=== PATIENT | female | born 1995 | race African-American/Black ===

== ENCOUNTER → 2017-05-08 11:07 | Outpatient (CLI) | payer MEDICAID ==
[~2017-05-08 11:07] MED LIST: HYDROCODON-ACE1 EAC7 PO; IBUPROFEN600 MG PO; PRENATAL COMPLE1 TAB PO
[2017-06-10 07:33] VITALS: BMI 42.7
== END | disposition home or self-care (01) ==
LOC: D.LDO 11:07
DX: O16.9 Unspecified maternal hypertension, unspecified trimester (principal); Z3A.00 Weeks of gestation of pregnancy not specified

== ENCOUNTER → 2017-05-13 13:41 | Outpatient (CLI) | payer MEDICAID ==
[2017-05-13 15:48] LABS: APPEARANCE HAZY (CLEAR); BILIRUBIN NEGATIVE (NEGATIVE); COLOR YELLOW (YELLOW); GLUCOSE NEGATIVE (NEGATIVE); KETONE NEGATIVE (NEGATIVE); NITRITE NEGATIVE (NEGATIVE); PH 7.5 (5.0-6.0); PROTEIN NEGATIVE (NEGATIVE); SPECIFIC GRAVITY 1.005 (1.005-1.020); UROBILINOGEN NORMAL (NORMAL)
[2017-05-13 15:54] LABS: BACTERIA MODERATE /hpf (NONE SEEN); WHITE CELLS - URINE 0-5 /hpf (0-5)
[2017-06-10 07:33] VITALS: BMI 42.7
== END | disposition home or self-care (01) ==
LOC: D.LDO 13:41
PROVIDERS: Obstetrics & Gynecology
DX: O26.893 Other specified pregnancy related conditions, third trimester (principal); Z3A.35 35 weeks gestation of pregnancy; R10.30 Lower abdominal pain, unspecified

== ENCOUNTER → 2017-05-16 13:15 | Outpatient (CLI) | payer MEDICAID ==
[2017-06-10 07:33] VITALS: BMI 42.7
== END | disposition home or self-care (01) ==
LOC: D.LDO 13:15
DX: O16.3 Unspecified maternal hypertension, third trimester (principal); Z3A.35 35 weeks gestation of pregnancy

== ENCOUNTER → 2017-05-23 14:52 | Outpatient (CLI) | payer MEDICAID ==
[2017-05-23 15:40] LABS: BASOPHILS 0.1 % (0-2); EOSINOPHILS 0.2 % (0-7); HEMATOCRIT 34.1 % (36.0-48.0); HEMOGLOBIN 10.9 g/dL (12-16); IMMATURE GRANULOCYTES 0.5 % (0-5); LYMPHOCYTES 14.3 % (15-50); MCH 26.1 pg (26.0-34.0); MCV 81.6 fL (80.0-100.0); MEAN PLATELET VOLUME 9.3 fL (7.4-10.4); MONOCYTES 6.5 % (2-11); NEUTROPHILS 78.4 % (40-80); PLATELET COUNT 226 10x3/uL (130-400); RBC 4.18 10x6/uL (4.00-5.40); RDW 14.4 % (11.5-14.5); WBC 12.1 10x3/uL (4.8-10.8)
[2017-05-23 15:58] LABS: ALBUMIN 2.5 g/dL (3.4-5.0); ALKALINE PHOSPHATASE 125 U/L (46-116); ALT (SGPT) 14 U/L (10-68); BILIRUBIN - TOTAL 0.29 mg/dL (0.2-1.3); CALC OSMOLALITY 275 mosm/kg (275-300); CHLORIDE - SERUM 107 mmol/L (98-107); CREATININE - SERUM 0.6 mg/dL (0.6-1.3); GLUCOSE 81 mg/dL (74-106); POTASSIUM - SERUM 3.7 mmol/L (3.5-5.1); PROTEIN - SERUM 6.4 g/dL (6.4-8.2); SODIUM 140 mmol/L (136-145); UREA NITROGEN 6 mg/dL (7-18); eGFR NON AFRICAN AMERICAN > 90 mL/min (90-120)
[2017-05-23 16:00] LABS: BILIRUBIN - DIRECT 0.11 mg/dL (0.00-0.30); BILIRUBIN - INDIRECT 0.18 mg/dL (0.00-1.00); URIC ACID 3.4 mg/dL (2.6-7.2)
[2017-05-23 16:15] LABS: APPEARANCE CLEAR (CLEAR); BILIRUBIN NEGATIVE (NEGATIVE); COLOR YELLOW (YELLOW); GLUCOSE NEGATIVE (NEGATIVE); KETONE NEGATIVE (NEGATIVE); NITRITE NEGATIVE (NEGATIVE); PROTEIN NEGATIVE (NEGATIVE); SPECIFIC GRAVITY 1.015 (1.005-1.020); UROBILINOGEN NORMAL (NORMAL)
[2017-05-25 10:38] LABS: PROTEIN - URINE 26.1 mg/dL (0.0-11.9)
[2017-06-10 07:33] VITALS: BMI 42.7
== END | disposition home or self-care (01) ==
LOC: D.LDO 14:52
PROVIDERS: Obstetrics & Gynecology
DX: O16.3 Unspecified maternal hypertension, third trimester (principal); Z3A.36 36 weeks gestation of pregnancy

== ENCOUNTER → 2017-05-25 10:00 | Outpatient (CLI) | payer MEDICAID ==
[2017-05-25 11:54] LABS: BASOPHILS 0.1 % (0-2); EOSINOPHILS 0.4 % (0-7); HEMOGLOBIN 10.6 g/dL (12-16); IMMATURE GRANULOCYTES 0.4 % (0-5); LYMPHOCYTES 16.8 % (15-50); MCH 25.9 pg (26.0-34.0); MCHC 32.1 g/dL (31.0-37.0); MCV 80.7 fL (80.0-100.0); MEAN PLATELET VOLUME 9.4 fL (7.4-10.4); MONOCYTES 6.1 % (2-11); NEUTROPHILS 76.2 % (40-80); PLATELET COUNT 227 10x3/uL (130-400); RBC 4.09 10x6/uL (4.00-5.40); RDW 14.6 % (11.5-14.5); WBC 10.9 10x3/uL (4.8-10.8)
[2017-05-25 11:56] LABS: ALBUMIN 2.3 g/dL (3.4-5.0); ALKALINE PHOSPHATASE 117 U/L (46-116); ALT (SGPT) 14 U/L (10-68); BILIRUBIN - DIRECT 0.12 mg/dL (0.00-0.30); BILIRUBIN - INDIRECT 0.14 mg/dL (0.00-1.00); BILIRUBIN - TOTAL 0.26 mg/dL (0.2-1.3); CALC OSMOLALITY 271 mosm/kg (275-300); CALCIUM 8.3 mg/dL (8.5-10.1); CHLORIDE - SERUM 106 mmol/L (98-107); CREATININE - SERUM 0.6 mg/dL (0.6-1.3); GLUCOSE 78 mg/dL (74-106); POTASSIUM - SERUM 3.7 mmol/L (3.5-5.1); PROTEIN - SERUM 6.6 g/dL (6.4-8.2); SODIUM 138 mmol/L (136-145); UREA NITROGEN 5 mg/dL (7-18); URIC ACID 3.2 mg/dL (2.6-7.2); eGFR NON AFRICAN AMERICAN > 90 mL/min (90-120)
[2017-06-10 07:33] VITALS: BMI 42.7
== END | disposition home or self-care (01) ==
LOC: D.LDO 10:00
PROVIDERS: Obstetrics & Gynecology
DX: O13.3 Gestational [pregnancy-induced] hypertension without significant proteinuria, third trimester (principal); Z3A.36 36 weeks gestation of pregnancy

== ENCOUNTER → 2017-05-30 16:27 | Outpatient (CLI) | payer MEDICAID ==
[2017-06-10 07:33] VITALS: BMI 42.7
== END | disposition home or self-care (01) ==
LOC: D.LDO 16:27
DX: O16.3 Unspecified maternal hypertension, third trimester (principal); Z3A.37 37 weeks gestation of pregnancy

== ENCOUNTER → 2017-06-02 10:25 | Outpatient (CLI) | payer MEDICAID ==
[2017-06-10 07:33] VITALS: BMI 42.7
== END | disposition home or self-care (01) ==
LOC: D.LDO 10:25
DX: O16.3 Unspecified maternal hypertension, third trimester (principal); Z3A.37 37 weeks gestation of pregnancy

== ENCOUNTER → 2017-06-06 16:20 | Outpatient (CLI) | payer MEDICAID ==
[2017-06-06 16:51] LABS: BASOPHILS 0.1 % (0-2); EOSINOPHILS 0.4 % (0-7); HEMATOCRIT 34.9 % (36.0-48.0); HEMOGLOBIN 11.2 g/dL (12-16); IMMATURE GRANULOCYTES 0.5 % (0-5); LYMPHOCYTES 17.6 % (15-50); MCH 25.9 pg (26.0-34.0); MCHC 32.1 g/dL (31.0-37.0); MCV 80.8 fL (80.0-100.0); MEAN PLATELET VOLUME 9.1 fL (7.4-10.4); MONOCYTES 8.1 % (2-11); NEUTROPHILS 73.3 % (40-80); PLATELET COUNT 234 10x3/uL (130-400); RBC 4.32 10x6/uL (4.00-5.40); RDW 14.7 % (11.5-14.5); WBC 11.2 10x3/uL (4.8-10.8)
[2017-06-06 17:19] LABS: ALBUMIN 2.6 g/dL (3.4-5.0); ALKALINE PHOSPHATASE 137 U/L (46-116); ALT (SGPT) 16 U/L (10-68); BILIRUBIN - DIRECT 0.17 mg/dL (0.00-0.30); BILIRUBIN - INDIRECT 0.19 mg/dL (0.00-1.00); BILIRUBIN - TOTAL 0.36 mg/dL (0.2-1.3); CALC OSMOLALITY 275 mosm/kg (275-300); CALCIUM 8.5 mg/dL (8.5-10.1); CARBON DIOXIDE 19.7 mmol/L (21.0-32.0); CHLORIDE - SERUM 106 mmol/L (98-107); CREATININE - SERUM 0.6 mg/dL (0.6-1.3); GLUCOSE 74 mg/dL (74-106); POTASSIUM - SERUM 3.5 mmol/L (3.5-5.1); PROTEIN - SERUM 6.6 g/dL (6.4-8.2); SODIUM 140 mmol/L (136-145); UREA NITROGEN 6 mg/dL (7-18); URIC ACID 3.2 mg/dL (2.6-7.2); eGFR NON AFRICAN AMERICAN > 90 mL/min (90-120)
[2017-06-10 07:33] VITALS: BMI 42.7
== END | disposition home or self-care (01) ==
LOC: D.LDO 16:20
PROVIDERS: Obstetrics & Gynecology
DX: O16.3 Unspecified maternal hypertension, third trimester (principal); Z3A.38 38 weeks gestation of pregnancy

== ENCOUNTER 2017-06-10 06:51 | Inpatient (IN) | payer MEDICAID ==
[~2017-06-10] VITALS: Ht 167.6 cm; Wt 119.7 kg
[2017-06-10] MEDS ORDERED: PRENATAL COMPLE1 TAB PO (07:04)
[2017-06-10 07:33] VITALS: BP 129/66; Ht 167.6 cm; Wt 119.7 kg
[2017-06-10 08:43] LABS: HEMATOCRIT 33.6 % (36.0-48.0); HEMOGLOBIN 10.8 g/dL (12-16); MCH 25.8 pg (26.0-34.0); MCHC 32.1 g/dL (31.0-37.0); MCV 80.2 fL (80.0-100.0); MEAN PLATELET VOLUME 9.5 fL (7.4-10.4); RBC 4.19 10x6/uL (4.00-5.40); RDW 15.1 % (11.5-14.5); WBC 12.4 10x3/uL (4.8-10.8)
[2017-06-10 08:52] LABS: APPEARANCE HAZY (CLEAR); BILIRUBIN NEGATIVE (NEGATIVE); COLOR YELLOW (YELLOW); GLUCOSE NEGATIVE (NEGATIVE); KETONE NEGATIVE (NEGATIVE); NITRITE NEGATIVE (NEGATIVE); PROTEIN NEGATIVE (NEGATIVE); SPECIFIC GRAVITY 1.015 (1.005-1.020); UROBILINOGEN NORMAL (NORMAL)
[2017-06-10 08:55] LABS: BACTERIA FEW /hpf (NONE SEEN); EPITHELIAL CELLS 0-5 /hpf (0-5); RED CELLS - URINE 0-5 /hpf (0-5); WHITE CELLS - URINE 0-5 /hpf (0-5)
[2017-06-11 19:43] VITALS: BP 148/73
[2017-06-11 23:00] VITALS: BP 152/79
[2017-06-12 00:20] VITALS: BP 132/70
[2017-06-12 06:45] LABS: BASOPHILS 0.1 % (0-2); EOSINOPHILS 0.4 % (0-7); HEMATOCRIT 27.5 % (36.0-48.0); HEMOGLOBIN 8.8 g/dL (12-16); IMMATURE GRANULOCYTES 0.4 % (0-5); LYMPHOCYTES 17.8 % (15-50); MCH 25.6 pg (26.0-34.0); MCV 79.9 fL (80.0-100.0); MEAN PLATELET VOLUME 9.5 fL (7.4-10.4); NEUTROPHILS 72.3 % (40-80); PLATELET COUNT 225 10x3/uL (130-400); RBC 3.44 10x6/uL (4.00-5.40); WBC 13.7 10x3/uL (4.8-10.8)
[2017-06-12 07:28] LABS: RAPID PLASMA REAGIN Non Reactive (Non Reactive)
[2017-06-12 08:30] VITALS: BP 134/84
[2017-06-12 19:45] VITALS: BP 150/84
[2017-06-13 00:30] VITALS: BP 149/77
[2017-06-13] MEDS ORDERED: IBUPROFEN600 MG PO (09:08)
[2017-06-13] MEDS ORDERED: HYDROCODON-ACE1 EAC7 PO (09:09)
== END 2017-06-13 15:00 | disposition home or self-care (01) | DRG 775 ==
LOC: D.LD 06:51 → D.SDCHOLD 06-12 15:20 → D.LD 06-12 15:20
PROVIDERS: Obstetrics & Gynecology
PROC: 10E0XZZ Delivery of Products of Conception, External Approach (ICD-10-PCS; principal; 2017-06-11)
PROC: 10907ZC Drainage of Amniotic Fluid, Therapeutic from Products of Conception, Via Natural or Artificial Opening (ICD-10-PCS; 2017-06-11)
PROC: 3E033VJ Introduction of Other Hormone into Peripheral Vein, Percutaneous Approach (ICD-10-PCS; 2017-06-11)
DX: O99.214 Obesity complicating childbirth (principal); Q87.2 Congenital malformation syndromes predominantly involving limbs; O26.833 Pregnancy related renal disease, third trimester; N04.9 Nephrotic syndrome with unspecified morphologic changes; O71.4 Obstetric high vaginal laceration alone; Z3A.39 39 weeks gestation of pregnancy; Z37.0 Single live birth

== ENCOUNTER 2017-06-14 17:45 | Emergency (ER) | payer MEDICAID ==
[2017-06-10 07:33] VITALS: BMI 42.7
[2017-06-14 18:36] LABS: BASOPHILS 0.1 % (0-2); EOSINOPHILS 1.5 % (0-7); HEMATOCRIT 29.3 % (36.0-48.0); HEMOGLOBIN 9.3 g/dL (12-16); IMMATURE GRANULOCYTES 0.5 % (0-5); LYMPHOCYTES 20.7 % (15-50); MCH 25.8 pg (26.0-34.0); MCHC 31.7 g/dL (31.0-37.0); MCV 81.2 fL (80.0-100.0); MEAN PLATELET VOLUME 9.2 fL (7.4-10.4); MONOCYTES 6.8 % (2-11); NEUTROPHILS 70.4 % (40-80); PLATELET COUNT 258 10x3/uL (130-400); RBC 3.61 10x6/uL (4.00-5.40); RDW 15.1 % (11.5-14.5)
[2017-06-14 18:40] LABS: ALBUMIN 2.4 g/dL (3.4-5.0); ALKALINE PHOSPHATASE 104 U/L (46-116); ALT (SGPT) 16 U/L (10-68); BILIRUBIN - TOTAL 0.24 mg/dL (0.2-1.3); CALC OSMOLALITY 281 mosm/kg (275-300); CALCIUM 8.3 mg/dL (8.5-10.1); CARBON DIOXIDE 25.3 mmol/L (21.0-32.0); CHLORIDE - SERUM 107 mmol/L (98-107); CREATININE - SERUM 0.7 mg/dL (0.6-1.3); GLUCOSE 85 mg/dL (74-106); POTASSIUM - SERUM 3.7 mmol/L (3.5-5.1); PROTEIN - SERUM 6.5 g/dL (6.4-8.2); SODIUM 143 mmol/L (136-145); UREA NITROGEN 7 mg/dL (7-18); eGFR NON AFRICAN AMERICAN > 90 mL/min (90-120)
[2017-06-14 19:54] LABS: CREATINE KINASE 98 UL (21-215); PRO BNP 99 pg/mL (0-125); TROPONIN-I < 0.017 ng/mL (0.000-0.060)
== END 2017-06-14 20:46 | disposition home or self-care (01) ==
LOC: D.ER 17:45
PROVIDERS: Family Medicine; Nurse Practitioner Family
DX: R60.0 Localized edema (principal)

== ENCOUNTER 2017-10-24 01:42 | Emergency (ER) | payer MEDICAID ==
[~2017-10-24] VITALS: Ht 167.6 cm; Wt 114.1 kg
[2017-10-24 01:46] VITALS: Ht 167.6 cm; Wt 114.1 kg
[2017-10-24] MEDS ORDERED: LISINOPRIL2.5 MG PO (01:49)
[2017-10-24] MEDS ORDERED: NORVASC10 MG PO (01:49)
[2017-10-24] MEDS ORDERED: ATIVAN1 MG (01:50)
[2017-10-24] MEDS ORDERED: MACROBID100 MG PO (03:45)
[2017-10-24 03:55] VITALS: BP 139/77
== END 2017-10-24 03:56 | disposition home or self-care (01) ==
LOC: D.ER 01:42
DX: N93.9 Abnormal uterine and vaginal bleeding, unspecified (principal); O20.0 Threatened abortion; Z3A.00 Weeks of gestation of pregnancy not specified; N39.0 Urinary tract infection, site not specified

== ENCOUNTER 2017-11-16 09:23 | Observation (INO) | payer SELFPAY ==
[~2017-11-16] VITALS: Ht 167.6 cm; Wt 114.5 kg
--- NOTE | ~2017-11-16 | DS ---
PATIENT:HARVEY RODGERS :89 MEDICAL RECORD: [id number] DISCHARGE SUMMARY ADMISSION DATE: 11/16/17 DISCHARGE DATE: 11/17/17 DATE OF ADMISSION: 11/16/2017 DATE OF DISCHARGE: 11/17/2017 ADMISSION DIAGNOSIS: Atypical chest pain. DISCHARGE DIAGNOSES: 1. Reflux. 2. Nausea and vomiting associated with . ATTENDING: Halle Nick MD HISTORY OF PRESENT ILLNESS AND INDICATION FOR HOSPITALIZATION: Please see the H&P in the chart. SUMMARY OF HOSPITALIZATION: The patient was admitted from the Emergency Room in no distress yesterday morning. After careful review of history, it is felt that the "chest pain" was most likely due to reflux. The patient was started on scheduled Pepcid and Reglan and managed expectantly over the last 24 hours. At this time, the patient states she is feeling "great." The patient will be discharged home on Reglan and Pepcid and asked to follow up at [facility]. Standard first trimester precautions have been reviewed. Ultrasound shows viable intrauterine . TRANSINT:[id number] Voice Confirmation ID: [id number] DOCUMENT ID: [id number] HALLE NICK MD at 1126 CC: [id number] DICTATION DATE: 11/17/17823 ELECTRIC MOTOR TESTER: 11/17/17 08 DIS IN 11/17/17 [id number] [place] [address]
[~2017-11-16 09:23] MED LIST changes: +ATIVAN1 MG; +LISINOPRIL2.5 MG PO; +MACROBID100 MG PO; +NORVASC10 MG PO
[2017-11-16 10:00] LABS: BASOPHILS 0.1 % (0-2); EOSINOPHILS 0.3 % (0-7); HEMATOCRIT 36.2 % (36.0-48.0); HEMOGLOBIN 11.8 g/dL (12-16); IMMATURE GRANULOCYTES 0.2 % (0-5); LYMPHOCYTES 16.3 % (15-50); MCHC 32.6 g/dL (31.0-37.0); MCV 73.6 fL (80.0-100.0); MEAN PLATELET VOLUME 8.8 fL (7.4-10.4); MONOCYTES 4.7 % (2-11); NEUTROPHILS 78.4 % (40-80); RBC 4.92 10x6/uL (4.00-5.40); WBC 10.7 10x3/uL (4.8-10.8)
[2017-11-16 10:05] LABS: INR 1.09 (0.85-1.17); PLATELET COUNT 316 10x3/uL (130-400); PROTIME 13.7 SECONDS (11.6-15.0)
[2017-11-16 10:06] LABS: APTT 44.6 SECONDS (22.8-39.4)
[2017-11-16 10:07] LABS: D-DIMER-QUANTITATIVE < 0.27 ug/mLFEU (0.20-0.54)
[2017-11-16 10:13] LABS: ALBUMIN 2.9 g/dL (3.4-5.0); ALKALINE PHOSPHATASE 78 U/L (46-116); ALT (SGPT) 18 U/L (10-68); BILIRUBIN - TOTAL 0.34 mg/dL (0.2-1.3); CALC OSMOLALITY 270 mosm/kg (275-300); CALCIUM 8.6 mg/dL (8.5-10.1); CARBON DIOXIDE 22.9 mmol/L (21.0-32.0); CHLORIDE - SERUM 104 mmol/L (98-107); CREATININE - SERUM 0.7 mg/dL (0.6-1.3); GLUCOSE 90 mg/dL (74-106); POTASSIUM - SERUM 3.6 mmol/L (3.5-5.1); PROTEIN - SERUM 7.4 g/dL (6.4-8.2); SODIUM 137 mmol/L (136-145); UREA NITROGEN 5 mg/dL (7-18); eGFR NON AFRICAN AMERICAN > 90 mL/min (90-120)
[2017-11-16 10:25] LABS: CKMB 0.5 U/L (0.0-3.6); CREATINE KINASE 91 UL (21-215); MAGNESIUM - SERUM 1.7 mg/dL (1.8-2.4)
[2017-11-16 10:29] LABS: TROPONIN-I < 0.017 ng/mL (0.000-0.060)
[2017-11-16] MEDS ORDERED: PREPLUS CA-FE1 EACH PO (13:49)
[2017-11-16 13:58] VITALS: BP 134/82; Ht 167.6 cm; Wt 114.5 kg
[2017-11-16 17:02] LABS: CREATINE KINASE 85 UL (21-215)
[2017-11-16 17:03] LABS: TROPONIN-I < 0.017 ng/mL (0.000-0.060)
[2017-11-16 17:13] VITALS: BP 148/70
[2017-11-16 20:00] VITALS: BP 149/73
[2017-11-16 22:26] LABS: CREATINE KINASE 88 UL (21-215); TROPONIN-I < 0.017 ng/mL (0.000-0.060)
[2017-11-17] VITALS: BP 135/81
[2017-11-17 04:00] VITALS: BP 130/78
[2017-11-17 05:42] LABS: CREATINE KINASE 67 UL (21-215); TROPONIN-I < 0.017 ng/mL (0.000-0.060)
[2017-11-17 08:30] VITALS: BP 149/79
[2017-11-17] MEDS ORDERED: REGLAN10 MG PO (11:48)
[2017-11-17] MEDS ORDERED: PEPCID AC20 MG PO (11:49)
[2017-11-17 12:58] VITALS: BP 131/79
== END 2017-11-17 12:24 | disposition home or self-care (01) ==
LOC: D.ER 09:23 → D.M2 11:05 → D.EDHOLD 11:05 → D.M2 11:05 → OBSVTIME 11:29 → D.M2 11-17 12:24
PROVIDERS: Family Medicine
DX: O26.891 Other specified pregnancy related conditions, first trimester (principal); R07.9 Chest pain, unspecified; K21.9 Gastro-esophageal reflux disease without esophagitis; Z87.891 Personal history of nicotine dependence

== ENCOUNTER 2017-12-04 08:01 | Emergency (ER) | payer MEDICAID ==
[~2017-12-04] VITALS: Ht 167.6 cm; Wt 114.5 kg
[~2017-12-04 08:01] MED LIST changes: +PEPCID AC20 MG PO; +PREPLUS CA-FE1 EACH PO; +REGLAN10 MG PO
[2017-12-04 08:05] VITALS: Ht 167.6 cm; Wt 114.5 kg
[2017-12-04 09:48] LABS: HCG - QUANTITATIVE (MATERNAL) 94545 mIU/mL; TROPONIN-I < 0.017 ng/mL (0.000-0.060)
[2017-12-04] MEDS ORDERED: TYLENOL W/CODEI1 TAB PO (10:28)
[2017-12-04 10:43] VITALS: BP 124/67
== END 2017-12-04 10:44 | disposition home or self-care (01) ==
LOC: D.ER 08:01
PROVIDERS: Emergency Medicine
DX: O26.891 Other specified pregnancy related conditions, first trimester (principal); Z3A.09 9 weeks gestation of pregnancy; R07.89 Other chest pain

== ENCOUNTER 2017-12-25 01:44 | Emergency (ER) | payer MEDICAID ==
[~2017-12-25] VITALS: Ht 167.6 cm; Wt 115.0 kg
[~2017-12-25 01:44] MED LIST changes: +TYLENOL W/CODEI1 TAB PO
[2017-12-25 02:04] VITALS: Ht 167.6 cm; Wt 115.0 kg
[2017-12-25 02:32] LABS: BASOPHILS 0.1 % (0-2); EOSINOPHILS 0.5 % (0-7); HEMOGLOBIN 12.1 g/dL (12-16); IMMATURE GRANULOCYTES 0.3 % (0-5); LYMPHOCYTES 22.6 % (15-50); MCH 24.9 pg (26.0-34.0); MCHC 32.7 g/dL (31.0-37.0); MCV 76.1 fL (80.0-100.0); MEAN PLATELET VOLUME 8.8 fL (7.4-10.4); MONOCYTES 6.4 % (2-11); NEUTROPHILS 70.1 % (40-80); PLATELET COUNT 290 10x3/uL (130-400); RBC 4.86 10x6/uL (4.00-5.40); RDW 17.1 % (11.5-14.5); WBC 12.8 10x3/uL (4.8-10.8)
[2017-12-25 02:37] LABS: APPEARANCE CLEAR (CLEAR); BILIRUBIN NEGATIVE (NEGATIVE); COLOR YELLOW (YELLOW); GLUCOSE NEGATIVE (NEGATIVE); KETONE NEGATIVE (NEGATIVE); NITRITE NEGATIVE (NEGATIVE); PROTEIN NEGATIVE (NEGATIVE); SPECIFIC GRAVITY 1.015 (1.005-1.020); UROBILINOGEN NORMAL (NORMAL)
[2017-12-25 02:38] LABS: BACTERIA FEW /hpf (NONE SEEN); EPITHELIAL CELLS 0-5 /hpf (0-5); RED CELLS - URINE NONE SEEN /hpf (0-5); WHITE CELLS - URINE 0-5 /hpf (0-5)
[2017-12-25 02:49] LABS: ALBUMIN 2.8 g/dL (3.4-5.0); ALKALINE PHOSPHATASE 84 U/L (46-116); ALT (SGPT) 15 U/L (10-68); BILIRUBIN - TOTAL 0.14 mg/dL (0.2-1.3); CALC OSMOLALITY 269 mosm/kg (275-300); CALCIUM 8.6 mg/dL (8.5-10.1); CARBON DIOXIDE 25.3 mmol/L (21.0-32.0); CHLORIDE - SERUM 102 mmol/L (98-107); CREATININE - SERUM 0.7 mg/dL (0.6-1.3); GLUCOSE 98 mg/dL (74-106); POTASSIUM - SERUM 3.8 mmol/L (3.5-5.1); PROTEIN - SERUM 7.8 g/dL (6.4-8.2); SODIUM 136 mmol/L (136-145); UREA NITROGEN 8 mg/dL (7-18); eGFR NON AFRICAN AMERICAN > 90 mL/min (90-120)
[2017-12-25 03:10] LABS: HCG - QUANTITATIVE (MATERNAL) 88668 mIU/mL
[2017-12-25 05:18] VITALS: BP 127/74
== END 2017-12-25 05:19 | disposition home or self-care (01) ==
LOC: D.ER 01:44
PROVIDERS: Family Medicine
DX: O44.12 Complete placenta previa with hemorrhage, second trimester (principal); Z3A.13 13 weeks gestation of pregnancy

== ENCOUNTER 2018-01-21 17:54 | Emergency (ER) | payer MEDICAID ==
[~2018-01-21] VITALS: Ht 167.6 cm; Wt 105.9 kg
[2018-01-21 18:00] VITALS: Ht 167.6 cm; Wt 105.9 kg
[2018-01-21 19:12] LABS: BASOPHILS 0.1 % (0-2); EOSINOPHILS 0.4 % (0-7); HEMATOCRIT 34.8 % (36.0-48.0); HEMOGLOBIN 11.3 g/dL (12-16); IMMATURE GRANULOCYTES 0.6 % (0-5); LYMPHOCYTES 21.2 % (15-50); MCH 25.3 pg (26.0-34.0); MCHC 32.5 g/dL (31.0-37.0); MEAN PLATELET VOLUME 9.1 fL (7.4-10.4); MONOCYTES 5.6 % (2-11); NEUTROPHILS 72.1 % (40-80); PLATELET COUNT 297 10x3/uL (130-400); RBC 4.46 10x6/uL (4.00-5.40); RDW 16.2 % (11.5-14.5); WBC 12.5 10x3/uL (4.8-10.8)
[2018-01-21 19:15] LABS: APPEARANCE CLEAR (CLEAR); BILIRUBIN NEGATIVE (NEGATIVE); COLOR YELLOW (YELLOW); GLUCOSE NEGATIVE (NEGATIVE); KETONE NEGATIVE (NEGATIVE); NITRITE NEGATIVE (NEGATIVE); PROTEIN NEGATIVE (NEGATIVE); UROBILINOGEN NORMAL (NORMAL)
[2018-01-21 19:17] LABS: BACTERIA MODERATE /hpf (NONE SEEN); EPITHELIAL CELLS 0-5 /hpf (0-5); RED CELLS - URINE 0-5 /hpf (0-5); WHITE CELLS - URINE 0-5 /hpf (0-5)
[2018-01-21 19:55] LABS: ALBUMIN 2.6 g/dL (3.4-5.0); ALKALINE PHOSPHATASE 86 U/L (46-116); ALT (SGPT) 13 U/L (10-68); BILIRUBIN - TOTAL 0.16 mg/dL (0.2-1.3); CALC OSMOLALITY 271 mosm/kg (275-300); CALCIUM 8.8 mg/dL (8.5-10.1); CARBON DIOXIDE 19.9 mmol/L (21.0-32.0); CHLORIDE - SERUM 105 mmol/L (98-107); CREATININE - SERUM 0.7 mg/dL (0.6-1.3); GLUCOSE 92 mg/dL (74-106); POTASSIUM - SERUM 3.8 mmol/L (3.5-5.1); PROTEIN - SERUM 7.5 g/dL (6.4-8.2); SODIUM 137 mmol/L (136-145); UREA NITROGEN 8 mg/dL (7-18); eGFR NON AFRICAN AMERICAN > 90 mL/min (90-120)
[2018-01-21 20:15] LABS: HCG - QUANTITATIVE (MATERNAL) 35619 mIU/mL
[2018-01-21 20:32] LABS: HCG URINE POSITIVE (NEGATIVE)
[2018-01-21] MEDS ORDERED: MACROBID100 MG PO (20:46)
[2018-01-21 21:15] VITALS: BP 132/78
== END 2018-01-21 21:16 | disposition home or self-care (01) ==
LOC: D.ER 17:54
PROVIDERS: Family Medicine
DX: O26.892 Other specified pregnancy related conditions, second trimester (principal); Z3A.16 16 weeks gestation of pregnancy; R07.89 Other chest pain; O23.42 Unspecified infection of urinary tract in pregnancy, second trimester

== ENCOUNTER → 2018-04-25 19:54 | Outpatient (CLI) | payer MEDICAID ==
[2018-01-21 18:00] VITALS: BMI 37.7
[2018-04-25 20:52] LABS: APPEARANCE CLEAR (CLEAR); BILIRUBIN NEGATIVE (NEGATIVE); COLOR YELLOW (YELLOW); GLUCOSE NEGATIVE (NEGATIVE); KETONE LARGE mg/dL (NEGATIVE); NITRITE NEGATIVE (NEGATIVE); PROTEIN NEGATIVE (NEGATIVE); SPECIFIC GRAVITY 1.015 (1.005-1.020); UROBILINOGEN NORMAL (NORMAL)
[2018-04-25 21:01] LABS: UDS - AMPHET NEGATIVE QUAL (NEGATIVE); UDS - BARB NEGATIVE QUAL (NEGATIVE); UDS - BENZO NEGATIVE QUAL (NEGATIVE); UDS - COCAINE NEGATIVE QUAL (NEGATIVE); UDS - OPIATE NEGATIVE QUAL (NEGATIVE); UDS - PCP NEGATIVE QUAL (NEGATIVE); UDS - THC NEGATIVE QUAL (NEGATIVE)
[2018-04-25 22:41] LABS: APPEARANCE CLEAR (CLEAR); BILIRUBIN NEGATIVE (NEGATIVE); COLOR YELLOW (YELLOW); GLUCOSE 100 mg/dL (NEGATIVE); KETONE NEGATIVE (NEGATIVE); NITRITE NEGATIVE (NEGATIVE); PROTEIN NEGATIVE (NEGATIVE); SPECIFIC GRAVITY 1.005 (1.005-1.020); UROBILINOGEN NORMAL (NORMAL)
== END | disposition home or self-care (01) ==
LOC: D.LABREF 19:54 → D.LDO 19:54
PROVIDERS: ATTEND Obstetrics & Gynecology
DX: O26.899 Other specified pregnancy related conditions, unspecified trimester (principal)

== ENCOUNTER 2018-05-16 20:33 | Emergency (ER) | payer MEDICAID ==
[~2018-05-16] VITALS: Ht 167.6 cm; Wt 114.5 kg
[2018-05-16 20:47] VITALS: Ht 167.6 cm; Wt 114.5 kg
[2018-05-16 21:01] LABS: APPEARANCE CLEAR (CLEAR); BILIRUBIN NEGATIVE (NEGATIVE); COLOR YELLOW (YELLOW); GLUCOSE NEGATIVE (NEGATIVE); KETONE NEGATIVE (NEGATIVE); NITRITE NEGATIVE (NEGATIVE); PROTEIN TRACE mg/dL (NEGATIVE); UROBILINOGEN NORMAL (NORMAL)
[2018-05-16 21:04] LABS: BACTERIA MODERATE /hpf (NONE SEEN); RED CELLS - URINE 0-5 /hpf (0-5)
[2018-05-16 21:05] LABS: AMORPHOUS SEDIMENT <1+ /lpf (NONE SEEN)
[2018-05-16 21:07] LABS: BASOPHILS 0.1 % (0-2); EOSINOPHILS 0.5 % (0-7); HEMATOCRIT 33.8 % (36.0-48.0); HEMOGLOBIN 10.7 g/dL (12-16); IMMATURE GRANULOCYTES 0.4 % (0-5); LYMPHOCYTES 22.8 % (15-50); MCH 24.5 pg (26.0-34.0); MCHC 31.7 g/dL (31.0-37.0); MCV 77.3 fL (80.0-100.0); MEAN PLATELET VOLUME 9.4 fL (7.4-10.4); MONOCYTES 7.8 % (2-11); NEUTROPHILS 68.4 % (40-80); PLATELET COUNT 250 10x3/uL (130-400); RBC 4.37 10x6/uL (4.00-5.40); RDW 15.2 % (11.5-14.5); WBC 11.6 10x3/uL (4.8-10.8)
[2018-05-16 21:21] LABS: ALBUMIN 2.3 g/dL (3.4-5.0); ALKALINE PHOSPHATASE 108 U/L (46-116); ALT (SGPT) 10 U/L (10-68); BILIRUBIN - TOTAL 0.24 mg/dL (0.2-1.3); CALC OSMOLALITY 269 mosm/kg (275-300); CALCIUM 8.5 mg/dL (8.5-10.1); CARBON DIOXIDE 22.4 mmol/L (21.0-32.0); CHLORIDE - SERUM 104 mmol/L (98-107); CREATININE - SERUM 0.6 mg/dL (0.6-1.3); GLUCOSE 99 mg/dL (74-106); POTASSIUM - SERUM 3.5 mmol/L (3.5-5.1); PROTEIN - SERUM 6.9 g/dL (6.4-8.2); SODIUM 136 mmol/L (136-145); UREA NITROGEN 6 mg/dL (7-18); eGFR NON AFRICAN AMERICAN > 90 mL/min (90-120)
[2018-05-16 21:53] LABS: TROPONIN-I 0.009 ng/mL (0.000-0.060)
[2018-05-16 23:29] VITALS: BP 127/79
== END 2018-05-16 23:29 | disposition home or self-care (01) ==
LOC: D.ER 20:33 → D.LDO 20:33 → EDSTATUS 20:36 → D.ER 23:29
PROVIDERS: Family Medicine
DX: O26.893 Other specified pregnancy related conditions, third trimester (principal); Z3A.33 33 weeks gestation of pregnancy; R07.9 Chest pain, unspecified

== ENCOUNTER 2018-05-18 10:07 | Inpatient (IN) | payer MEDICAID ==
[~2018-05-18] VITALS: Ht 167.6 cm; Wt 115.5 kg
[2018-05-18] VITALS (9 sets, daily range): BP systolic 128–135; BP diastolic 68–82; Ht 167.6 cm; Wt 115.5 kg
[2018-05-18 10:34] LABS: BASOPHILS 0 % (0-2); EOSINOPHILS 0.3 % (0-7); HEMATOCRIT 32.4 % (36.0-48.0); HEMOGLOBIN 10.3 g/dL (12-16); IMMATURE GRANULOCYTES 0.3 % (0-5); LYMPHOCYTES 17.2 % (15-50); MCH 24.3 pg (26.0-34.0); MCHC 31.8 g/dL (31.0-37.0); MCV 76.6 fL (80.0-100.0); MEAN PLATELET VOLUME 9.2 fL (7.4-10.4); MONOCYTES 6.3 % (2-11); NEUTROPHILS 75.9 % (40-80); PLATELET COUNT 237 10x3/uL (130-400); RBC 4.23 10x6/uL (4.00-5.40); RDW 15.1 % (11.5-14.5); WBC 11.8 10x3/uL (4.8-10.8)
[2018-05-18 10:52] LABS: ALBUMIN 2.3 g/dL (3.4-5.0); ALKALINE PHOSPHATASE 106 U/L (46-116); BILIRUBIN - TOTAL 0.37 mg/dL (0.2-1.3); CALCIUM 8.1 mg/dL (8.5-10.1); CARBON DIOXIDE 22.3 mmol/L (21.0-32.0); CHLORIDE - SERUM 103 mmol/L (98-107); CREATININE - SERUM 0.6 mg/dL (0.6-1.3); GLUCOSE 102 mg/dL (74-106); POTASSIUM - SERUM 3.3 mmol/L (3.5-5.1); PROTEIN - SERUM 6.8 g/dL (6.4-8.2); SODIUM 137 mmol/L (136-145); eGFR NON AFRICAN AMERICAN > 90 mL/min (90-120)
[2018-05-18 10:54] LABS: ALT (SGPT) 15 U/L (10-68); CALC OSMOLALITY 270 mosm/kg (275-300); UREA NITROGEN 4 mg/dL (7-18)
[2018-05-18 12:00] LABS: APTT 26.2 SECONDS (22.8-39.4); INR 1.02 (0.85-1.17); PROTIME 12.9 SECONDS (11.6-15.0)
[2018-05-18 12:01] LABS: D-DIMER-QUANTITATIVE 0.95 ug/mLFEU (0.20-0.54)
--- NOTE | 2018-05-18 13:16 | NUR ---
FUNDUS IS BOGGY, MIDLINE THREE FINGER WIDTH BELOW THE UMBILICUS. NO CLOTS PRESENT. ROMAIN PADS IN PLACE. SATURATED TWO PADS AFTER 15 MINUTES. REPLACED PADS WITH MODERATE AMOUNT OF RUBRA LOCHIA NOTED. WILL CONTONUE TO MONITOR.
--- NOTE | 2018-05-18 13:36 | NUR ---
RECEIVED FROM RECOVERY ROOM VIA BED. ALERT AND ORIENTED. IV NS WITH 20 UNITS PITOCIN INFUSING SECONDARY IV. PRIMARY IV NS HANGING BUT CLAMPED OFF. PIRES DRAINING CLEAR URINE. LTCS INCISION CLEAN AND DRY. U/2 FIRM MIDLINE, RUBRA MOD, CLEAN ROMAIN-PADS X 2 PLACED. VS WERE OBTAINED, REPORT RECEIVED FROM HEAD BOYS GOLF COACH. PT CURRENTLY DENIES ANY PAIN. RH POSITIVE, RUBELLA IMMUNE, NON SMOKER, INFANT WAS TRANSFERRED TO [facility]. PT DID NOT HAVE THE OPPORTUNITY TO SEE PRIOR TO TRANSFER. PT MOTHER WENT WITH . SIDE RAILS UP X 2, CALL LIGHT PLACED IN REACH.
--- NOTE | 2018-05-18 13:38 | NUR ---
NO PRE-OP COUNT DONE D/T EMERGENCY CASE. XRAY PERFORMED AND SHOWED EVIDENCE OF SPONGE LEFT AFTER CLOSING. PATIENT RE-PREPPED AND RE-DRAPED. SPONGE, SHARPS, AND INSTRUMENTS COUNTED PRIOR TO 2ND INCISION. 1 LAP RETRIEVED FROM PATIENT. FOLLOW UP COUNTS FOR SPONGES, SHARPS, AND INSTRUMENTS CORRECT.
--- NOTE | 2018-05-18 13:58 | NUR ---
SITTING IN SEMI FOWLERS POSITION TALKING ON PHONE. VS OBTAINED. RUBRA SMALL TO MOD. FRESH ICE PACK TO INCISION, ICE CHIPS GIVEN PER PT REQUESTS. SIDE RAILS UP X 2, CALL LIGHT IN REACH.
[2018-05-18] MEDS ORDERED: ACETAMINOPHEN500 M1 PO (13:59)
--- NOTE | 2018-05-18 14:15 | NUR ---
SITTING IN SEMI-FOWLERS POSITION, INSTRUCTED ON INCENTIVE SPIROMETER USE. USED TIME THREE WITH EFFECTIVE COUGH. NO REQUESTS AT PRESENT.
--- NOTE | 2018-05-18 14:28 | NUR ---
SITTING UP IN BED TALKING ON PHONE. U/2 FIRM MIDLINE, RUBRA SMALL TO MOD, PER-PADS X [address]. DENIES NEEDING ANYTHING. SIDERAILS X 2 REMAIN UP AND CALL LIGHT IN REACH.
--- NOTE | 2018-05-18 14:44 | NUR ---
DR MONREAL CALLED L&D EARLIER AND ORDER ANCEF 2 GM IVPB X 3 DOSES. ANCEF 2 GRAMS HUNG AFTER EXPLAINING MEDICATION TO PATIENT.
--- NOTE | 2018-05-18 15:00 | NUR ---
SITTING UP IN BED TALKING TO VISITOR. U/2 FIRM MIDLINE, RUBRA MOD ON PAD, CHANGED TWO ROMAIN-PADS, CLEAN CHUX UNDER BUTTOCKS AND CLEAN PERINEAL AREA. PIRES DRAINING WITHOUT DIFFICULTY. DENIES PAIN AT THIS TIME. REQUESTED APPLE JUICE WHICH WAS GIVEN.
--- NOTE | 2018-05-18 15:57 | NUR ---
C/O 6/10 ABDOMINAL CRAMPING. DILAUDID 2 MG GIVEN SLOW IVP AFTER DISCUSSING OPTIONS. U/2 FIRM, RUBRA MOD ON PERIPADS, FUNDAL MASSAGE AND CARE FUNDAL PRESSURE WITHOUT EXPRESSION OF CLOTS. CLEAN ROMAIN-PADS X 2 PLACED. SIDE RAILS UP X 2, CALL LIGHT IN REACH. ENCOURAGED TO REST. NO CURRENT VISITORS.
--- NOTE | 2018-05-18 16:05 | NUR ---
CALLED DR MONREAL AGAIN AND LEFT MESSAGE ON CELL PHONE TO CALL L&D.
--- NOTE | 2018-05-18 16:05 | NUR ---
PAGED DR MONREAL TO INFORM MD THAT PATIENT HAVING MORE VAGINAL LOCHIA FLOW THAN EXPECTED AT THIS TIME SP C/S. NO ANSWER ON CELL PHONE, LEFT MESSAGED.
--- NOTE | 2018-05-18 16:30 | NUR ---
CALLED DR MONREAL ON CELL PHONE AND LEFT MESSAGE TO RETURN CALL.
--- NOTE | 2018-05-18 16:31 | NUR ---
DR MONREAL RETURNED CALL AND INFORMED OF CONCERN REGARDING INCREASED LOCHIA FLOW. NEW ORDERS WERE RECEIVED.
--- NOTE | 2018-05-18 16:44 | NUR ---
CYTOTECH 200 MICROGRAMS GIVEN PO PER MD T.O. ORDER AFTER EXPLAINING TO PATIENT PURPOSE OF MEDICATION. NS WITH 20 UNITS PITOCIN INFUSING AT 125 ML/HR. VISITOR ASKED ABOUT ACCESS TO CONGREGATION VIDEO TO VIEW BABY. SHE TALKED TO Shae PATTERSON RN NURSERY WHO PROVIDED INFORMATION. CLEAN ROMAIN-PADS X 2 PLACED.
--- NOTE | 2018-05-18 17:30 | NUR ---
CALLED TO ROOM BY PT, DESIRES TO CHANGE POSITION. ASSISTED TO SEMI-FOWLERS POSITION. FRESH ICE PACK TO INCISION. NO ADDITIONAL REQUESTS.
--- NOTE | 2018-05-18 17:30 | NUR ---
POSITIONED FROM LEFT SIDE TO RIGHT SIDE. INCENTIVE SPIROMETER USED X 3. U/2 FIRM, RUBRA SMALL. CLEAN ROMAIN-PADS X 2 PLACED. CLEAR LIQUID DIET AT BEDSIDE. ATE SMALL AMOUNT OF JELLO. CALL LIGHT IN REACH. DENIES CRAMPING OR PAIN.
--- NOTE | 2018-05-18 18:00 | NUR ---
CALLED TO ROOM BY PATIENT. REQUESTED ASSISTANCE TO CHANGE POSITION. ASSISTED TO SEMI-FOWLERS POSITIONS. SAYS THAT IS MUCH BETTER. FRESH ICE PACK TO INCISIONAL DRESSING- PLACED OVER GOWN. NO ADDITIONAL REQUESTS.
--- NOTE | 2018-05-18 19:40 | NUR ---
pT REC'D IN BED AT THIS TIME. FUNDUS FIRM AT U/2 WITH MODERATE LOCHIA NOTED. SCDS IN PLACE AND FUNCTIONAL. IV OF NS+20 UNITS OF PITOCIN INFUSING TO THE RIGHT HAND AT 125 MLL/HR. SITE CLEAR AND PATENT. DRESSING TO THE ABDOMEN INTACT WITH BLOOD FROM PERIPADS NOTED. PIRES CATH PATENT WITH 450 ML OF URINE NOTED. PERIPAD COUNT AT THIS TIME WITH NURSE FROM PREVIOUS SHIFT 89 ML WITH A TOTAL OF 3 PADS NOTED. SIDERAILS UP FOR SAFETY. CALL LIGHT IN PT REACH. Mayela PRINGLE RN
--- NOTE | 2018-05-18 20:07 | NUR ---
PT COMPLAIS OF PAIN AT THIS TIME. MEIDCATED WITH DILMARTIR Gonzalez MD. NETO CONTINUE TO MONITOR. Mayela PRINGLE RN
--- NOTE | 2018-05-18 21:30 | NUR ---
PT WITH A PAIN LEVEL OF 3 AT THIS TIME. ROMAIN CARE PROVIDED AT THIS TIME. PERIPAD COUNT AT THIS TIME. 48 ML X3 PERIPADS. NO DISTRESS NOTED AT THIS TIME. PT PROVIDED WITH CLEAR LIQUIDS.
--- NOTE | 2018-05-18 22:30 | NUR ---
ANCEF 2 GRAMS IVPB UP AT THIS TIME. SALINE LOCK TO THE LFT HAND FLUSHED AND SITE PATENT AT THIS TIME. Mayela PRINGLE RN
--- NOTE | 2018-05-18 23:57 | NUR ---
PT COMPLAINS OF PAIN. MEDICATED WITH TORADOL 30 MG IV AND MYLICON 80 MG AT THIS TIME. WILL CONTINUE TO MONITOR. Mayela PRINGLE RN
[2018-05-19] VITALS (9 sets, daily range): BP systolic 108–133; BP diastolic 54–70
--- NOTE | 2018-05-19 00:45 | NUR ---
ATTEMPTED TO GET PT UP AT THIS TIME. PT ABLE TO STAND UP AT THE SIDE OF BED AND TAKE TWO STEPS AT THIS TIME, PT VERBALIZED FEELING DIZZY AT THIS TIME. PT BACK TO BED. PERICARE PERFORMED. MODERATE LOCHIA NOTE. FUNDUS REMAINS FIRM AND U/2. VITAL SIGNS STABLE AT THIS TIME. BP 113/57 WITH A HR OF 74. WILL CONTINUE TO MONITOR THIS SHIFT. Mayela PRINGLE RN
--- NOTE | 2018-05-19 01:33 | NUR ---
PT MEDICATED WITH DILAUDID 2 MG FOR PAIN OF 6. STATES THAT SHE IS PASSING GAS AND PAIN IS DECREASING. WILL CONTINUE TO MONITOR. LAB HERE FOR BLOOD DRAW. Mayela PRINGLE RN
[2018-05-19 01:47] LABS: HEMATOCRIT 27.8 % (36.0-48.0); MCH 24.7 pg (26.0-34.0); MCHC 32.4 g/dL (31.0-37.0); MCV 76.4 fL (80.0-100.0); PLATELET COUNT 228 10x3/uL (130-400); RBC 3.64 10x6/uL (4.00-5.40); RDW 15.3 % (11.5-14.5)
[2018-05-19 02:09] LABS: EOSINOPHILS 2 % (0-7); LYMPHOCYTES 10 % (15-50); MONOCYTES 6 % (2-11); NEUTROPHILS 82 % (40-80); PLATELET ESTIMATE NORMAL
--- NOTE | 2018-05-19 03:38 | NUR ---
PT RESTING WELL AT THIS TIME. NOT AWAKENED. WILL CONTIMUE TO MONITOR. Mayela PRINGLE RN
--- NOTE | 2018-05-19 04:42 | NUR ---
200 mcg of cytotec given at this time. asleep but easliy awakened. pt verbalizes no pain. arquel loyola rn
--- NOTE | 2018-05-19 06:08 | NUR ---
TORADOL 30 MG AND ANCEF GIVEN AT THIS TIME. WILL CONTINUE TO MONITOR. Mayela PRINGLE RN
--- NOTE | 2018-05-19 06:30 | NUR ---
DR MONREAL CALLED REGARDING PT LAB WORK. NO NEW ORDERS. STATES THAT LAB WORK WILL PROBABLY BE REPEATED THIS EVENING. WILL CONTINUE TO MONITOR. Mayela PRINGLE RN
--- NOTE | 2018-05-19 07:41 | NUR ---
ASSUMED CARE OF THIS PATIENT AT THIS TIME. SITTING UP IN BED, BREAKFAST TRAY AT BEDSIDE. U/2 FIRM, RUBRA SMALL TO MOD ON ROMAIN-PAD. REMOVED ONE PAD AND LEFT ONE PAD IN PLACE, PIRES DRAINING CLEAR YELLOW URINE. NO REQUESTS AT THIS TIME. WILL COMPLETE SHIFT ASSESSMENT AFTER BREAKFAST. SIDE RAILS UP X 2, CALL LIGHT IN REACH. TO CALL IF ANYTHING IS NEEDED.
--- NOTE | 2018-05-19 08:20 | NUR ---
SHIFT ASSESSMENT COMPLETED, DENIES INCISIONAL PAIN OR CRAMPING. C/O UPPER ABDOMENAL GAS PAIN. DISCUSSED RELIEF MEASURES. MYLICON 80 MG GIVEN PO AT THIS TIME. SITTING UP IN BED EATING BREAKFAST. FRESH WATER GIVEN. AFTER ASSESSMENT RECEIVED PHONE CALL. TALKING TO PER VACCINE MANAGER ABOUT BABY PICTURES. REMAINS AT THE [facility]. DR MONREAL CALLED L&D EARLIER AND PLANS ROUNDS EARLY THIS AM, PT NOTIFIED. SIDE RAILS UP X 2, CALL LIGHT IN REACH.
--- NOTE | 2018-05-19 09:56 | NUR ---
SITTING UP IN BED WATCHING TV. SAYS SHE PASSED GAS AND FEELS A LOT BETTER. DENIES PAIN AT THIS TIME. CLEANED PERINEAL AREA WITH WARM WATER. SMALL LOCHIA ON ONE PAD. REPLACED PADS WITH TWO CLEAN ONES. DISCUSSED CARE PLAN TO TRY OOB AGAIN, MINOR PIRES AND SHOWSOCORRO LATER TODAY. WAITING ON DR DENG ARRIVAL BEFORE INITIATING PLAN. SAYS SHE WAS ABLE TO ACCESS VIDEO OF SON AT [facility] [place]. SAYS THEY PLAN TO TAKE HIM OF THE OXYGEN TODAY. HAS BEEN USING INCENTIVE SPIROMETER ON OWN. DARK CLEAR URINE NOTED, ENCOURAGED TO INCREASE WATER INTAKE SINCE NO LONGER WITH IV FLUIDS. SHOOK HEAD YES IN UNDERSTANDING. MOVES SELF IN BED, ENCOURAGED TO REPOSITION TO SIDE TILT. VERBALIZED UNDERSTANDING. SIDE RAILS UP X 2, CALL LIGHT IN REACH.
--- NOTE | 2018-05-19 10:14 | NUR ---
DR MONREAL VISITED. PLAN DC PIRES, AMBULATE, DC DRESSING WHEN IN SHOWER THIS AFTERNOON. ANTICIPATE DC HOME TOMORROW PER DR MONREAL. MD TALKED TO PATIENT ABOUT YESTERDAYS EVENTS, ANTIBIOTIC THERAPY AND LAB RESULTS. NO QUESTIONS FROM PATIENT.
--- NOTE | 2018-05-19 11:04 | NUR ---
PIRES CATHETER DC'D. SAT UP WITHOUT DIFFICULTY, STATES "I FEEL BETTER THIS TIME." STOOD UP AT BEDSIDE, STARTED FEELING LIGHTHEADED SO SAT BACK DOWN. CLEAN CHUX AND UNDERWEAR ON. NO RUBRA ON PERIPAD. STOOD UP A SECOND TIME WITHOUT DIFFICULTY. WILL PLAN TO AMBULATE AND/OR SHOWER AFTER LUNCH, ANTICIPATE VOIDING PRIOR TO 1500. SCD'S REPLACED. INSTRUCTED PAIN MEDICATIONS ARE NOW IN PILL FORM AND NOT TO LET PAIN GET BAD BEFORE ASKING FOR MEDICATION. DENIES PAIN NOW, NO REQUESTS. SIDE RAILS UP X 2, CALL LIGHT IN REACH. DESIRES LEMON-EKWOK DRINK.
--- NOTE | 2018-05-19 12:30 | NUR ---
REGULAR DIET SERVED. SPRITE RECEIVED WITH MEAL. NO CURRENT REQUESTS OR NEEDS, LIGHTS TURNED ON SO PT CAN SEE WHILE EATING. SIDERAILS UP X 2, CALL LIGHT IN REACH.
--- NOTE | 2018-05-19 13:34 | NUR ---
ATE PARTIAL REGULAR DIET. C/O ABDOMINAL ACHING. DISCUSSED PAIN MANAGEMENT OPTIONS. PERCOCET 5 MG GIVEN PO FOR 4/10 PAIN AND MYLICON 80 MG GIVEN FOR GAS PAIN. RUBRA SMALL, ROMAIN-PADS X 2 PLACED. U/2 FIRM. ENCOURAGED TO POSITION ON LEFT SIDE FOR GAS RELIEF. WILL GET UP TO SHOWER AFTER PAIN MED EFFECTIVE AND LAB DRAW IS COMPLETED. FRESH ICE PACK GIVEN FOR INCISION. SCD'S IN PLACE AND WORKING BILATERALLY. INCENTIVE SPIROMETER USED BY PT. NO REQUESTS. SIDE RAILS UP X 2, CALL LIGHT IN REACH.
--- NOTE | 2018-05-19 15:10 | NUR ---
DESIRES TO TAKE SHOWER. ASSISTED UP TO SIT ON SIDE OF BED. DENIED C/O DIZZINESS OR LIGHTHEADEDNESS. STOOD UP AT SIDE OF BED WITHOUT DIFFICULTY, DENIED DIZZINESS, AMBULATED SLOWLY TO BATHROOM WITH ASSISTANCE. VOIDED 600 ML URINE WITH LOCHIA MIXED IN. PERIPADS SMALL AMOUNT OF LOCHIA NOTED. DESIRED TO SHOWER. ASSISTED TO SHOWER WITHOUT DIFFICULTY.
--- NOTE | 2018-05-19 15:20 | NUR ---
C/O DIZZINESS WHILE IN SHOWER, CALLED FOR SECOND RN ASSISTANCE TO BRING AMMONIA CAPSULE. ASSISTED PT TO DRY OFF AND REMOVED ABDOMINAL DRESSING WHILE WAITING FOR ASSISTANCE. PT HEAD LOWERED MUCH POSSIBLE, AMMONIA CAPSULE USED, PT STATES "I'M FEELING BETTER". ASSISTED PT TO STAND. DENIES C/O DIZZINESS, SAT PT IN ROLLING CHAIR TO RETURN TO BED. ASSISTED TO STANDING POSITION WITHOUT C/O DIZZINESS AND RETURNED TO BED. CLEAN GOWN, UNDERWEAR AND PERIPADS IN PLACE. LINENS WERE CHANGED PRIOR TO PT C/O DIZZINESS IN SHOWER. SIDE RAILS UP X 2. DENIES ANY PAIN SAYS SHE FELT BETTER AFTER VOIDING. VISITORS X 2 IN ROOM.
[2018-05-19 15:23] LABS: BASOPHILS 0.1 % (0-2); EOSINOPHILS 0 % (0-7); HEMATOCRIT 23.9 % (36.0-48.0); HEMOGLOBIN 7.7 g/dL (12-16); IMMATURE GRANULOCYTES 0.6 % (0-5); LYMPHOCYTES 12.4 % (15-50); MCH 24.6 pg (26.0-34.0); MCHC 32.2 g/dL (31.0-37.0); MCV 76.4 fL (80.0-100.0); MEAN PLATELET VOLUME 9.2 fL (7.4-10.4); NEUTROPHILS 76.9 % (40-80); PLATELET COUNT 224 10x3/uL (130-400); RBC 3.13 10x6/uL (4.00-5.40); RDW 15.5 % (11.5-14.5); WBC 18.1 10x3/uL (4.8-10.8)
--- NOTE | 2018-05-19 15:30 | NUR ---
CBC RESULTS OBTAINED AND CALLED TO DR MONREAL. ALSO NOTIFIED OF PT C/O DIZZINESS WHILE IN THE SHOWER. ORDERS RECEIVED TO TRANSFUSE PRBC OVER 1 TO 1 1/2 HOURS. REPEAT CBC ORDERED FOR 0400. WILL NOTIFY PATIENT.
--- NOTE | 2018-05-19 15:51 | NUR ---
CONTACTED MD TO SEE IF HE WANTS TORADOL STOPPED. ORDERS RECEIVED TO CONTINUE ORDER.
--- NOTE | 2018-05-19 16:59 | NUR ---
SITTING UP IN BED EATING DINNER. CONTACTED BLOOD BANK TO SEE IF PRBC READY FOR ASSET PROTECTION PROFESSIONAL. WILL ASSET PROTECTION PROFESSIONAL ROSIE.
--- NOTE | 2018-05-19 17:34 | NUR ---
SITTING UP IN BED EATING DINNER. PRBC TRANSFUSION INITIATED BY Hay TALAVERA RN AND VERIFIED BY Shae PATTERSON RN. THIS RN STAYING IN ROOM WITH PATIENT DURING FIRST 15 MINS OF INFUSION. C/O 4/10 CRAMPING. SCHEDULED TORADOL GIVEN. DISCUSSED PAIN MANAGEMENT OPTIONS, DESIRES TO SEE IF TORADOL HELPS, WILL ASK FOR PERCOCET IF NEEDED. RUBRA GASTELUM ON PERIPAD. REMOVED PAD AND LEFT ONE PAD IN PLACE. VISITORS X 2 IN ROOM. INCENTIVE SPIROMETER USED BY PATIENT. POSITIONED TO LEFT SIDE. SIDE RAILS UP X 2, CALL LIGHT IN REACH.
--- NOTE | 2018-05-19 17:50 | NUR ---
VS: 98.7, PULSE 98, RESP 20, BP 117/57. NO ADVERSE REACTIONS NOTED. TRANSFUSION INCREASED FROM 75 ML/HR TO 250 ML/HR PER ALARIS PUMP. INFUSION SITE WITHOUT SIGNS OF INFILTRATION. SIDE RAILS UP, CALL LIGHT IN REACH, VISITORS X 2 IN ROOM. NO REQUESTS.
--- NOTE | 2018-05-19 18:18 | NUR ---
FALLING ASLEEP, AROUSED EASILY. NO C/O ADVERSE REACTIONS, FRESH ICE PACK WAS GIVEN EARLIER FOR USE ON INCISION. SAYS HER CRAMPING IS GETTING BETTER, NOW 05/05. BLOOD INFUSING WITHOUT DIFFICULTY INTO LEFT HAND. NO SIGNS OF INFILTRATION. SIDERAILS UP X 2, CALL LIGHT IN REACH. ENCOURAGED TO TRY TO GET SOME SLEEP. VISITORS GONE FOR NOW.
--- NOTE | 2018-05-19 19:08 | NUR ---
BEDSIDE REPORT REC'D FROM Derick JACK RN. PT REC'D LAYING ON LEFT SIDE IN SEMI FOWLERS POSITION, RESTING WITH EYES CLOSED, OPENS EYES WHEN DOOR OPENS. SHIFT ASSESSMENT COMPLETED AT THIS TIME PER FLOWSHEET. DENIES CRAMPING, PAIN 4/10, ABD "SORENESS." PERCOCET GIVEN PER ORDER AND PT REQUEST. FIRST PRBC CURRENTLY TRANSFUSING TO L HAND PIV, VSS, NO S/S OF REACTION NOTED. L HAND PIV PATENT WITH NO S/S OF INFILTRATION, TEGADERM INTACT. FUNDUS FIRM, MIDLINE AND U2 WITH SMALL AMT RUBRA LOCHIA, PERIPAD WEIGHTED AND CHANGED, 8 MLS PER DIGITAL SCALE ON PERIPAD. REPORTS THAT SHE IS PASSING FLATUS AND VOIDING WITHOUT DIFFICULTY, DENIES NEED TO VOID AT THIS TIME. LOWER TRANSVERSE ABD INCISION, WELL APPROXIMATED WITH ESTRELLA INTACT, NO DRAINAGE NOTED, PERIPAD PLACED OVER INCISION BETWEEN ABD FOLD AND PT INSTRUCTED ON INCISIONAL CARE, VERBALIZES UNDERSTANDING. 1+ BLE EDEMA NOTED. SCD'S ON BLE. PT REPORTS THAT SHE HAS BEEN USING HER PHONE TO CHECK VIDEO FEED OF INFANT AT [facility] AND STATES THAT THE LAST TIME SHE SPOKE WITH THE NURSE CARING FOR HER HE WAS DOING WELL. BED IN LOW POSITION WITH UPPER SIDE RAILS RAISED X2. CALL LIGHT AND PHONE WITHIN REACH. WILL CONTINUE TO MONITOR AND ASSIST PRN.
--- NOTE | 2018-05-19 19:35 | NUR ---
FIRST UNIT PRBC TRANSFUSION COMPLETED. LINE FLUSHING AT THIS TIME. NO S/S OF TRANSFUSION REACTION NOTED. PT RESTING QUIETLY ON RIGHT SIDE, DENIES NEEDS. BED IN LOW POSITION WITH UPPER SIDE RAILS RAISED X2. CALL LIGHT AND PHONE WITHIN REACH. WILL CONTINUE TO MONITOR AND ASSIST PRN.
--- NOTE | 2018-05-19 19:53 | NUR ---
2ND UNIT PRBC VERIFIED WITH Kyle BARRIENTOS RN AND TRANSFUSION BEGAN AT 150 MLS. VSS. RN REMAINS AT BEDSIDE. PT CONVERSING WITH FAMILY MEMBERS. DENIES NEEDS.
--- NOTE | 2018-05-19 20:08 | NUR ---
15 MINUTE V/S DURING PRBC TRANSFUSION STABLE. NO S/S OF TRANSFUSION REACTION NOTED. TRANSFUSION RATE INCREASED TO 200 MLS/HR. UP TO VOID WITH STAND BY ASSIST OF RN, DENIES DIZZINESS AND LIGHTHEADEDNESS, STEADY GAIT NOTED. PERICARE DONE PER PT, PERIPADS CHANGED, 3MLS PER DIGITAL SCALE. 3 HALF DOLLAR SIZED CLOTS NOTED IN HAT. 500 MLS VOIDED IN HAT. CONTINUES TO DENY DIZZINESS WHILE BEING OOB, REQUESTS TO AMBULATE IN [place] WITH RN ASSIST. WILL CHECK V/S AND AMBULATE WITH PT IF STABLE.
--- NOTE | 2018-05-19 20:24 | NUR ---
V/S REMAIN STABLE. PRBC RATE INCREASED TO 250 MLS/HR. NO S/S OF REACTION NOTED. WILL CONTINUE TO MONITOR AND ASSIST PRN.
--- NOTE | 2018-05-19 20:32 | NUR ---
AMBULATED IN [place] TO NURSES STATION WITH STAND BY ASSIST CARTON WRAPPER. DENIES DIZZINESS, SOB, CHEST PAIN, AND LIGHTHEADEDNESS DURING AMBULATION. BACK TO ROOM, ASSISTED TO BED. SCD'S ON BLE. DENIES NEEDS AT THIS TIME. NO S/S OF TRANSFUSION REACTION NOTED. WILL CONTINUE TO MONITOR AND ASSIST PRN. BED IN LOW POSITION WITH UPPER SIDE RAILS RAISED X2. CALL LIGHT AND PHONE WITHIN REACH. WILL CONTINUE TO MONITOR AND ASSIST PRN.
--- NOTE | 2018-05-19 20:59 | NUR ---
SECOND UNIT PRBC TRANSFUSION COMPLETED. SWITCHED TO NS TO FLUSH LINE. PT CURRENTLY ON FACETIME, REQUESTS THAT V/S BE CHECKED WHEN SHE FINISHES HER CONVERSATION, STATES THAT SHE WILL USE CALL LIGHT TO NOTIFY RN. DENIES DIZZINESS. BED IN LOW POSITION WITH UPPER SIDE RAILS RAISED X2. CALL LIGHT AND PHONE WITHIN REACH. WILL CONTINUE TO MONITOR AND ASSIST PRN.
--- NOTE | 2018-05-19 21:20 | NUR ---
CALLS VIA CALL LIGHT, STATES THAT SHE IS DONE WITH FACETIME. RN TO BEDSIDE, POST TRANSFUSION V/S OBTAINED AND STABLE. RESTING IN SEMI-FOWLERS POSITION. NO S/S OF TRANSFUSION REACTION NOTED. PAIN 3/10, ABD SORENESS, DENIES NEED FOR ADDITIONAL INTERVENTION. SCD'S ON BLE. DENIES NEED. BED IN LOW POSITION WITH UPPER SIDE RAILS RAISED X2. CALL LIGHT AND PHONE WITHIN REACH. WILL CONTINUE TO MONITOR AND ASSIST PRN.
--- NOTE | 2018-05-19 21:30 | NUR ---
ANSWERED QUESTIONS REGARDING BF. PT REQUESTS PUMP TO BEGIN PUMPING. Kirstie HYATT LPN TO BEDSIDE WITH PUMP AND INSTRUCTING ON USE.
--- NOTE | 2018-05-19 22:14 | NUR ---
SCHEDULED TORADOL GIVEN PER ORDER. DENIES PAIN CURRENTLY SITTING AT REST. STATES THAT SHE JUST FINISHED PUMPING RIGHT BREAST AND WILL CALL WHEN SHE FINISHES PUMPING ON LEFT BREAST FOR EBM TO BE STORED. L HAND PIV FLUSHED WITHOUT DIFFICULTY, NO S/S OF INFILTRATION NOTED. PT REPORTS THAT SHE IS FEELING "SO MUCH BETTER SINCE GETTING BLOOD. I GUESS I REALLY NEEDED THAT." PLAN OF CARE DISCUSSED WITH PT. STATES THAT HER MOTHER HAS BEEN A NICU AT [facility] [place] [facility] WITH AND SHE WAS ABLE TO USE VIDEO FEED TO SEE HIM WHILE PUMPING. ICE WATER PROVIDED. DENIES ADDITIONAL NEEDS. BED IN LOW POSITION WITH UPPER SIDE RAILS RAISED X2. CALL LIGHT AND PHONE WITHIN REACH. REINFORCED FALL PRECAUTION TEACHING, VERBALIZES UNDERSTANDING. WILL CONTINUE TO MONITOR AND ASSIST PRN.
--- NOTE | 2018-05-19 23:09 | NUR ---
C/O FEELING "HOT AND LIGHTHEADED." VSS. PT REPORTS THAT SHE "JUST FEELS LIKE SHE IS HOT AND I GET LIGHTHEADED WHEN I'M HOT." ROOM TEMP CURRENTLY ON 80, DECREASED TO 72 PER PT REQUEST. DENIES CHEST PAIN, ITCHING, AND SOB. FUNDUS REMAINS FIRM, MIDLINE AND U2. PERIPAD WEIGHTED AND CHANGED WITH 6 MLS PER DIGITAL SCALE. NO CLOTS NOTED. PAIN FOLLOWING FUNDAL CHECK 09/04, REQUEST PAIN MEDICATION, WILL PROVIDE. STATES THAT PRIOR TO FUNDAL CHECK SHE HAD NO PAIN. BED IN LOW POSITION WITH UPPER SIDE RAILS RAISED X2. CALL LIGHT AND PHONE WITHIN REACH.
--- NOTE | 2018-05-19 23:27 | NUR ---
PERCOCET NOT AVAILABLE ON L&D UNIT, HAD TO BE PULLED FROM WS. C/O PAIN 09/04 FOLLOWING FUNDAL ASSESSMENT, "SORENESS AND I'M CRAMPING A LITTLE NOW." 2 TABS PERCOCET PROVIDED PER ORDER AND PT REQUEST. ICE WATER PROVIDED. UPON ENTERING ROOM PT WATCHING VIDEO FEED OF AND NOTED TO BE TEARFUL, STATES "I JUST WANT TO BE WITH HIM AND MISS HIM." STATES THAT AFTER GETTING PERCOCET SHE IS GOING TO TRY TO SLEEP. ASSISTED TO POSITION WITH LEFT SIDE, PILLOW PLACED BEHIND BACK FOR COMFORT AND SUPPORT. SCD'S ON BLE. BED IN LOW POSITION WITH UPPER SIDE RAILS RAISED X2. CALL LIGHT AND PHONE WITHIN REACH. WILL CONTINUE TO MONITOR AND ASSIST PRN.
--- NOTE | 2018-05-20 00:08 | NUR ---
REMAINS ON LEFT SIDE, RESTING WITH EYES CLOSED. RESPIRATIONS REGULAR AND UNLABORED, NO S/S OF DISTRESS NOTED. BED IN LOW POSITION WITH UPPER SIDE RAILS RAISED X2. CALL LIGHT AND PHONE WITHIN REACH. WILL CONTINUE TO MONITOR AND ASSIST PRN.
--- NOTE | 2018-05-20 02:06 | NUR ---
RESTING WITH EYES CLOSED LAYING ON RIGHT SIDE. RESPIRATIONS REGULAR AND UNLABORED, NO S/S OF DISTRESS NOTED. BED IN LOW POSITION WITH UPPER SIDE RAILS RAISED X2. CALL LIGHT AND PHONE WITHIN REACH. WILL CONTINUE TO MONITOR AND ASSIST PRN.
--- NOTE | 2018-05-20 03:04 | NUR ---
PT IN SEMI FOWLERS POSITION VIEWING VIDEO FEED OF INFANT. STATES THAT SHE HASN'T VOIDED SINCE LAST VOID WITH RN. UP TO BATHROOM. DENIES DIZZINESS, STEADY GAIT NOTED. SMALL AMT RUBRA LOCHIA NOTED ON PERIPAD, 9 MLS PER DIGITAL SCALE. 4 GOLF BALL SIZED CLOTS PASSED IN TOILET WITH 700 MLS URINE IN HAT. PT STATES "IT FEELS BETTER SIZE GETTING THOSE CLOTS OUT." PERICARE DONE PER PT. BACK TO BED, FUNDUS FIRM, MIDLINE AND U2 WITH SCANT RUBRA LOCHIA, NO CLOTS PRESENT. REQUEST TO AMBULATE WITH STAND BY ASSIST OF RN IN [place].
[2018-05-20 03:37] VITALS: BP 128/59
--- NOTE | 2018-05-20 03:37 | NUR ---
BACK TO ROOM FOLLOWING AMBULATING TO FRONT WINDOW OF NBN WITH THIS RN X2. STEADY GAIT NOTED. DENIES DIZZINESS, CHEST PAIN, AND SOB. VSS. FUNDUS REMAINS FIRM, MIDLINE AND U2, SCANT RUBRA LOCHIA, NO CLOTS NOTED. DENIES PAIN. ICE WATER AND ORANGE JUICE PROVIDED PER REQUEST. CURRENTLY IN HIGH FOWLERS POSITION PUMPING. SCD'S LEFT OFF PER PT REQUEST. DENIES ADDITIONAL NEEDS. BED IN LOW POSITION WITH UPPER SIDE RAILS RAISED X2. CALL LIGHT AND PHONE WITHIN REACH. WILL CONTINUE TO MONITOR AND ASSIST PRN.
--- NOTE | 2018-05-20 04:58 | NUR ---
SCHEDULED TORADOL GIVEN PER ORDER. DENIES PAIN AT THIS TIME. STATES THAT SHE JUST FINISHED PUMPING AND LOOKING AT VIDEO FEED OF . DENIES NEEDS. CBC DRAWN FROM RIGHT HAND X1 STICK, TOLERATED WELL, SENT TO LAB. LIGHTS OFF PER PT REQUEST. DENIES NEEDS. SCD'S BACK ON BLE. BED IN LOW POSITION WITH UPPER SIDE RAILS RAISED X2. CALL LIGHT AND PHONE WITHIN REACH. WILL CONTINUE TO MONITOR AND ASSIST PRN.
--- NOTE | 2018-05-20 05:49 | NUR ---
PT RESTING IN SEMI FOWLERS POSITION WITH EYES CLOSED, RESPIRATIONS REGULAR AND UNLABORED WITH NO S/S OF DISTRESS NOTED. BED IN LOW POSITION WITH UPPER SIDE RIALS RAISED X2. CALL LIGHT AND PHONE WITHIN REACH. WILL CONTINUE TO MONITOR AND ASSIST PRN.
[2018-05-20 05:56] LABS: BASOPHILS 0.1 % (0-2); EOSINOPHILS 0.1 % (0-7); HEMOGLOBIN 8.5 g/dL (12-16); IMMATURE GRANULOCYTES 0.6 % (0-5); LYMPHOCYTES 18.6 % (15-50); MCH 25.3 pg (26.0-34.0); MCHC 32.7 g/dL (31.0-37.0); MCV 77.4 fL (80.0-100.0); MEAN PLATELET VOLUME 9.4 fL (7.4-10.4); MONOCYTES 10.3 % (2-11); NEUTROPHILS 70.3 % (40-80); PLATELET COUNT 197 10x3/uL (130-400); RBC 3.36 10x6/uL (4.00-5.40); RDW 17.1 % (11.5-14.5); WBC 16.2 10x3/uL (4.8-10.8)
[2018-05-20 07:24] VITALS: BP 114/64
--- NOTE | 2018-05-20 07:25 | NUR ---
AM ASSESSMENT COMPLETED. SEE FLOWSHEET. PT DENIES PASSING CLOTS OR HEAVY BLEEDING THIS AM. INSPIRATORY WHEEZING HEARD IN UPPER LEFT LOBE, PT DOES COUGHING EXERCISES, AND DEEP BREATHING, LUNGS ARE CLEAR, AUSCULTATED IN ALL LOBES. INCENTIVE SPIROMETER ON BEDSIDE TABLE, BEING USED BY PT. PT DENIES ALL OTHER NEEDS AT THIS TIME. DIETARY SERVES REGULAR BREAKFAST TRAY. SRUP X2, CALL LIGHT AND PHONE WITHIN REACH.
--- NOTE | 2018-05-20 09:34 | NUR ---
Dr. Nick on unit, and to pt's room to speak with her.
--- NOTE | 2018-05-20 09:49 | OP ---
PATIENT NAME: HARVEY RODGERS MEDICAL RECORD: [id number] :97 LOCATION:[id number] ADMISSION DATE:05/18/18 SURGEON: FRANCISCO JAVIER MONREAL MD DATE OF OPERATION: 05/18/2018 PREOPERATIVE DIAGNOSES: 1. at 33 weeks and 5 days. 2. Abruptio placenta. POSTOPERATIVE DIAGNOSES: 1. at 33 weeks and 5 days. 2. Abruptio placenta. PROCEDURE: Emergent low transverse delivery. SURGEON: Francisco Javier Monreal MD THERAPEUTIC MASSAGE TECHNICIAN: Oscar Wayne. ANESTHESIOLOGIST: Dr. Zazueta. ANESTHETIC: General. FINDINGS: Viable male infant, breech presentation, Apgars 3, 6, and 8. Cord gas of 7.34. Weight of the is 2390 grams. At the time of hysterotomy, lower segment of the placenta is found to be detached from the uterus with a bloody amniotic fluid. What was visualized of the ovaries and tubes at the time of the close of the uterus is unremarkable. SPECIMEN REMOVED: Placenta. SPECIMEN DISPOSITION: Pathology. ESTIMATED BLOOD LOSS: 900 cc intraoperative. URINE OUTPUT: 175 cc of clear urine. FLUIDS: 2500 cc of crystalloid and 2 units of packed red blood cells. DRAINS: [id number]. COMPLICATIONS: None. INDICATIONS: The patient is a 22-year-old G2, para 1 at 33 weeks and 5 days who began having cramping yesterday. The patient had some spotting earlier, but upon presentation and after arrival to triage had copious amounts of vaginal bleeding, which continued. Upon examination, the patient had a tender uterus with continued vaginal bleeding. heart rate was 130s at the time of moving from triage to the delivery room. Verbal consent was given for necessary measures to include, but not limited to section and any indicated procedures and blood transfusion. DESCRIPTION OF PROCEDURE: After informed consent was given verbally, the patient was urgently taken to the Emergency Room where rapid sequence induction OPERATIVE REPORT [id number] HARVEY RODGERS was undertaken and the patient was quickly prepped and draped. Prepping and draping concluded before the patient was asleep. Upon release from anesthesia, an incision was made across the lower abdomen and carried down to the underlying layer of the fascia with the scalpel and the fascia opened in the midline. The fascial opening was extended laterally with Morrison scissors and then with both blunt dissection and using a scalpel, the rectus bellies were in the midline and the peritoneum was entered bluntly. Rectus bellies were and a DeLee all-purpose retractor inserted into the lower abdomen. A low transverse hysterotomy was immediately performed with the above findings. Using standard breech extraction maneuvers, the was delivered onto the abdomen atraumatically. The cord was milked and then doubly clamped and cut. The infant was immediately passed to the awaiting attendant. The remaining portion of the placenta attached to the uterus was now removed with Crede maneuver and passed off the field. The uterus was exteriorized, cleared of all clot and debris. The hysterotomy was closed in a running-locked fashion with chromic stitch. After closing of the hysterotomy, the posterior cul-de-sacs irrigated and irrigant removed. Uterus was returned to the abdomen. Some bleeding noted from the left corner and a stitch was placed here. After irrigating anteriorly and inspecting of the hysterotomy, the fascia was closed with a running stitch of Vicryl. After this has been performed, subcutaneous tissue was closed and the skins were approximated with morgan. The count was correct times 2. At this point, x-ray was brought in due to the pre-incisional count not being performed on the instruments. The x-ray shows radiopaque material in the lower abdomen and upper pelvis. Immediately, the patient was reprepped and the incision opened and sponge removed from the lower abdomen above the level of the uterus. The new set up that was placed had a proper count prior to and after with all 20 sponges represented +1. The fascia was closed after inspection of the pelvis and a bleeding vessel that was encountered was cauterized and ligature applied. The fascia was now closed with looped PDS and the subcutaneous tissue was closed with plain gut again. [place] were used to reapproximate the skin. Sponge, lap and needle count is correct times 2 for the second portion of this procedure. The patient was awakened and went to the recovery area in stable condition. TRANSINT:[id number] Voice Confirmation ID: [id number] DOCUMENT ID: [id number] FRANCISCO JAVIER MONREAL MD at 0949 CC: [id number] DICTATION DATE: 05/18/18 1246 SNOWBOARDING INSTRUCTOR: 05/18/18 1317 ADM IN [facility] [address] [facility] [place] [address]
--- NOTE | 2018-05-20 13:00 | NUR ---
Pt discharged in stable condition, off unit by wheelchair, with volunteer, and family at her side.
== END 2018-05-20 13:00 | disposition home or self-care (01) | DRG 788 ==
LOC: D.LDO 10:07 → D.LD 10:34
PROVIDERS: ADMIT Obstetrics & Gynecology; ATTEND Obstetrics & Gynecology
PROC: 10D00Z1 Extraction of Products of Conception, Low, Open Approach (ICD-10-PCS; principal; 2018-05-18 10:48)
DX: O45.93 Premature separation of placenta, unspecified, third trimester (principal); Z3A.33 33 weeks gestation of pregnancy; Z37.0 Single live birth

== ENCOUNTER 2018-06-28 10:02 | Emergency (ER) | payer MEDICAID ==
[~2018-06-28] VITALS: Ht 167.6 cm; Wt 115.0 kg
[~2018-06-28 10:02] MED LIST changes: +ACETAMINOPHEN500 M1 PO
[2018-06-28 10:06] VITALS: Ht 167.6 cm; Wt 115.0 kg
[2018-06-28 10:46] LABS: ALBUMIN 3.3 g/dL (3.4-5.0); ALKALINE PHOSPHATASE 134 U/L (46-116); ALT (SGPT) 18 U/L (10-68); BILIRUBIN - TOTAL 0.23 mg/dL (0.2-1.3); CALC OSMOLALITY 276 mosm/kg (275-300); CALCIUM 8.6 mg/dL (8.5-10.1); CARBON DIOXIDE 23.6 mmol/L (21.0-32.0); CHLORIDE - SERUM 106 mmol/L (98-107); CREATININE - SERUM 0.8 mg/dL (0.6-1.3); GLUCOSE 87 mg/dL (74-106); POTASSIUM - SERUM 3.7 mmol/L (3.5-5.1); PROTEIN - SERUM 8.1 g/dL (6.4-8.2); SODIUM 140 mmol/L (136-145); UREA NITROGEN 11 mg/dL (7-18); eGFR NON AFRICAN AMERICAN > 90 mL/min (90-120)
[2018-06-28 10:47] LABS: BASOPHILS 0.1 % (0-2); EOSINOPHILS 0.9 % (0-7); HEMATOCRIT 35.3 % (36.0-48.0); HEMOGLOBIN 11.1 g/dL (12-16); IMMATURE GRANULOCYTES 0.3 % (0-5); LYMPHOCYTES 20.5 % (15-50); MCH 23.1 pg (26.0-34.0); MCHC 31.4 g/dL (31.0-37.0); MCV 73.5 fL (80.0-100.0); MEAN PLATELET VOLUME 9.1 fL (7.4-10.4); NEUTROPHILS 72.2 % (40-80); WBC 10.2 10x3/uL (4.8-10.8)
[2018-06-28 10:49] LABS: PLATELET COUNT 330 10x3/uL (130-400)
[2018-06-28 10:52] LABS: APPEARANCE HAZY (CLEAR); BILIRUBIN NEGATIVE (NEGATIVE); COLOR YELLOW (YELLOW); GLUCOSE NEGATIVE (NEGATIVE); KETONE NEGATIVE (NEGATIVE); NITRITE NEGATIVE (NEGATIVE); PROTEIN NEGATIVE (NEGATIVE); UROBILINOGEN NORMAL (NORMAL)
[2018-06-28 10:53] LABS: BACTERIA MODERATE /hpf (NONE SEEN); EPITHELIAL CELLS 0-5 /hpf (0-5); MUCUS <1+ /lpf (NONE SEEN); RED CELLS - URINE 0-5 /hpf (0-5); WHITE CELLS - URINE 0-5 /hpf (0-5)
[2018-06-28] MEDS ORDERED: FLAGYL500 MG PO (12:33)
[2018-06-28] MEDS ORDERED: NORVASC5 MG PO (12:33)
[2018-06-28 13:13] VITALS: BP 137/84
[2018-06-29] MEDS ORDERED: MECLIZINE HCL25 MG PO (23:10)
== END 2018-06-28 13:03 | disposition home or self-care (01) ==
LOC: D.ER 10:02
PROVIDERS: Family Medicine
DX: I10 Essential (primary) hypertension (principal); N76.0 Acute vaginitis; B96.89 Other specified bacterial agents as the cause of diseases classified elsewhere; R42 Dizziness and giddiness

== ENCOUNTER 2018-06-29 18:44 | Emergency (ER) | payer MEDICAID ==
[~2018-06-29] VITALS: Ht 167.6 cm; Wt 115.0 kg
[~2018-06-29 18:44] MED LIST changes: +FLAGYL500 MG PO; +NORVASC5 MG PO
[2018-06-29 18:59] VITALS: Ht 167.6 cm; Wt 115.0 kg
[2018-06-29 19:58] LABS: BASOPHILS 0.1 % (0-2); EOSINOPHILS 0.8 % (0-7); HEMATOCRIT 35.8 % (36.0-48.0); HEMOGLOBIN 11.3 g/dL (12-16); IMMATURE GRANULOCYTES 0.3 % (0-5); LYMPHOCYTES 26.9 % (15-50); MCH 23.5 pg (26.0-34.0); MCHC 31.6 g/dL (31.0-37.0); MCV 74.4 fL (80.0-100.0); MEAN PLATELET VOLUME 9.3 fL (7.4-10.4); MONOCYTES 5.9 % (2-11); PLATELET COUNT 300 10x3/uL (130-400); RBC 4.81 10x6/uL (4.00-5.40); RDW 16.1 % (11.5-14.5); WBC 9.9 10x3/uL (4.8-10.8)
[2018-06-29 20:01] LABS: APPEARANCE CLEAR (CLEAR); COLOR YELLOW (YELLOW); SPECIFIC GRAVITY 1.005 (1.005-1.020)
[2018-06-29 20:02] LABS: BILIRUBIN NEGATIVE (NEGATIVE); EPITHELIAL CELLS 0-5 /hpf (0-5); GLUCOSE NEGATIVE (NEGATIVE); KETONE NEGATIVE (NEGATIVE); NITRITE NEGATIVE (NEGATIVE); PROTEIN NEGATIVE (NEGATIVE); RED CELLS - URINE 25-50 /hpf (0-5); UROBILINOGEN NORMAL (NORMAL); WHITE CELLS - URINE OCC /hpf (0-5)
[2018-06-29 20:03] LABS: HCG URINE NEGATIVE (NEGATIVE)
[2018-06-29 20:06] LABS: ALBUMIN 3.2 g/dL (3.4-5.0); ALKALINE PHOSPHATASE 130 U/L (46-116); ALT (SGPT) 15 U/L (10-68); CALC OSMOLALITY 277 mosm/kg (275-300); CALCIUM 8.3 mg/dL (8.5-10.1); CARBON DIOXIDE 22.4 mmol/L (21.0-32.0); CHLORIDE - SERUM 106 mmol/L (98-107); CREATININE - SERUM 0.7 mg/dL (0.6-1.3); GLUCOSE 92 mg/dL (74-106); PROTEIN - SERUM 7.6 g/dL (6.4-8.2); SODIUM 139 mmol/L (136-145); UREA NITROGEN 12 mg/dL (7-18); eGFR NON AFRICAN AMERICAN > 90 mL/min (90-120)
[2018-06-29 20:07] LABS: POTASSIUM - SERUM 4.4 mmol/L (3.5-5.1)
[2018-06-29] MEDS ORDERED: MECLIZINE HCL25 MG PO (23:10)
[2018-06-29 23:27] VITALS: BP 147/93
== END 2018-06-29 23:26 | disposition home or self-care (01) ==
LOC: D.ER 18:44
PROVIDERS: Family Medicine
DX: R42 Dizziness and giddiness (principal)

== ENCOUNTER 2018-10-28 22:17 | Emergency (ER) | payer MEDICAID ==
[~2018-10-28] VITALS: Ht 167.6 cm; Wt 113.7 kg
[~2018-10-28 22:17] MED LIST changes: +MECLIZINE HCL25 MG PO
[2018-10-28 22:28] VITALS: Ht 167.6 cm; Wt 113.7 kg
[2018-10-28 23:08] LABS: BASOPHILS 0.1 % (0-2); EOSINOPHILS 0.3 % (0-7); HEMOGLOBIN 11.3 g/dL (12-16); IMMATURE GRANULOCYTES 0.3 % (0-5); LYMPHOCYTES 17.9 % (15-50); MCH 23.5 pg (26.0-34.0); MCHC 32.3 g/dL (31.0-37.0); MCV 72.9 fL (80.0-100.0); MEAN PLATELET VOLUME 8.6 fL (7.4-10.4); NEUTROPHILS 74.4 % (40-80); PLATELET COUNT 278 10x3/uL (130-400); RDW 18.2 % (11.5-14.5); WBC 12.5 10x3/uL (4.8-10.8)
[2018-10-28 23:16] LABS: INR 1.02 (0.85-1.17); PROTIME 12.9 SECONDS (11.6-15.0)
[2018-10-28 23:34] LABS: ALBUMIN 3.2 g/dL (3.4-5.0); ALKALINE PHOSPHATASE 98 U/L (46-116); ALT (SGPT) 20 U/L (10-68); BILIRUBIN - TOTAL 0.22 mg/dL (0.2-1.3); CALC OSMOLALITY 274 mosm/kg (275-300); CARBON DIOXIDE 22.6 mmol/L (21.0-32.0); CHLORIDE - SERUM 103 mmol/L (98-107); CREATININE - SERUM 0.8 mg/dL (0.6-1.3); GLUCOSE 99 mg/dL (74-106); POTASSIUM - SERUM 3.9 mmol/L (3.5-5.1); PROTEIN - SERUM 7.5 g/dL (6.4-8.2); SODIUM 138 mmol/L (136-145); UREA NITROGEN 10 mg/dL (7-18); eGFR NON AFRICAN AMERICAN > 90 mL/min (90-120)
[2018-10-28 23:39] LABS: CKMB 0.7 U/L (0.0-3.6); CREATINE KINASE 115 UL (21-215); MAGNESIUM - SERUM 1.6 mg/dL (1.8-2.4); THYROID STIMULATING HORMONE 1.34 uIU/mL (0.36-3.74); TROPONIN-I < 0.017 ng/mL (0.000-0.060)
[2018-10-29] MEDS ORDERED: NORMODYNE / TR100 MG PO (00:14)
[2018-10-29 00:28] VITALS: BP 145/90
[2018-10-29] MEDS ORDERED: TYLENOL W/CODEI1 TAB PO (12:16)
[2018-10-29] MEDS ORDERED: KEFLEX500 MG PO (12:16)
== END 2018-10-29 00:28 | disposition home or self-care (01) ==
LOC: D.ER 22:17
PROVIDERS: Emergency Medicine
DX: O26.891 Other specified pregnancy related conditions, first trimester (principal); Z3A.09 9 weeks gestation of pregnancy; R51 Headache

== ENCOUNTER 2018-10-29 09:42 | Emergency (ER) | payer MEDICAID ==
[~2018-10-29] VITALS: Ht 167.6 cm; Wt 113.6 kg
[~2018-10-29 09:42] MED LIST changes: +NORMODYNE / TR100 MG PO
[2018-10-29 09:45] VITALS: Ht 167.6 cm; Wt 113.6 kg
[2018-10-29 10:28] LABS: BASOPHILS 0 % (0-2); EOSINOPHILS 0.5 % (0-7); HEMATOCRIT 35.5 % (36.0-48.0); HEMOGLOBIN 11.7 g/dL (12-16); IMMATURE GRANULOCYTES 0.2 % (0-5); LYMPHOCYTES 21.3 % (15-50); MCH 24.2 pg (26.0-34.0); MCV 73.5 fL (80.0-100.0); MEAN PLATELET VOLUME 8.7 fL (7.4-10.4); MONOCYTES 8.8 % (2-11); NEUTROPHILS 69.2 % (40-80); PLATELET COUNT 287 10x3/uL (130-400); RBC 4.83 10x6/uL (4.00-5.40); RDW 18.3 % (11.5-14.5)
[2018-10-29 10:29] LABS: WBC 8.9 10x3/uL (4.8-10.8)
[2018-10-29 10:30] LABS: ALBUMIN 3.2 g/dL (3.4-5.0); ALKALINE PHOSPHATASE 99 U/L (46-116); ALT (SGPT) 22 U/L (10-68); CALC OSMOLALITY 273 mosm/kg (275-300); CALCIUM 8.9 mg/dL (8.5-10.1); CARBON DIOXIDE 23.9 mmol/L (21.0-32.0); CHLORIDE - SERUM 103 mmol/L (98-107); CREATININE - SERUM 0.8 mg/dL (0.6-1.3); GLUCOSE 86 mg/dL (74-106); POTASSIUM - SERUM 3.8 mmol/L (3.5-5.1); PROTEIN - SERUM 7.7 g/dL (6.4-8.2); SODIUM 138 mmol/L (136-145); UREA NITROGEN 10 mg/dL (7-18); eGFR NON AFRICAN AMERICAN > 90 mL/min (90-120)
[2018-10-29 10:38] LABS: APPEARANCE CLOUDY (CLEAR); BACTERIA MODERATE /hpf (NONE SEEN); BILIRUBIN NEGATIVE (NEGATIVE); COLOR YELLOW (YELLOW); EPITHELIAL CELLS 0-5 /hpf (0-5); GLUCOSE NEGATIVE (NEGATIVE); KETONE NEGATIVE (NEGATIVE); MUCUS <1+ /lpf (NONE SEEN); NITRITE NEGATIVE (NEGATIVE); PROTEIN NEGATIVE (NEGATIVE); SPECIFIC GRAVITY 1.025 (1.005-1.020); UROBILINOGEN NORMAL (NORMAL)
[2018-10-29 10:53] LABS: HCG - QUANTITATIVE (MATERNAL) 67521 mIU/mL
[2018-10-29] MEDS ORDERED: TYLENOL W/CODEI1 TAB PO (12:16)
[2018-10-29] MEDS ORDERED: KEFLEX500 MG PO (12:16)
[2018-10-29 12:51] VITALS: BP 159/89
== END 2018-10-29 12:52 | disposition home or self-care (01) ==
LOC: D.ER 09:42
PROVIDERS: Family Medicine
DX: O26.892 Other specified pregnancy related conditions, second trimester (principal); Z3A.18 18 weeks gestation of pregnancy; R51 Headache

== ENCOUNTER 2019-10-09 03:24 | Emergency (ER) | payer SELFPAY ==
[~2019-10-09] VITALS: Ht 167.6 cm; Wt 112.3 kg
[~2019-10-09 03:24] MED LIST changes: +KEFLEX500 MG PO
[2019-10-09 03:25] VITALS: BP 143/80; Ht 167.6 cm; Wt 112.3 kg
[2019-10-09] MEDS ORDERED: PRENATAL VITAMIN (03:33)
[2019-10-09 03:49] LABS: BASOPHILS 0.1 % (0-2); EOSINOPHILS 0.9 % (0-7); HEMATOCRIT 38.7 % (36.0-48.0); HEMOGLOBIN 12.7 g/dL (12-16); IMMATURE GRANULOCYTES 0.4 % (0-5); LYMPHOCYTES 32.9 % (15-50); MCH 26.8 pg (26.0-34.0); MCHC 32.8 g/dL (31.0-37.0); MCV 81.6 fL (80.0-100.0); MEAN PLATELET VOLUME 8.7 fL (7.4-10.4); MONOCYTES 6.4 % (2-11); NEUTROPHILS 59.3 % (40-80); RBC 4.74 10x6/uL (4.00-5.40); RDW 14.3 % (11.5-14.5)
[2019-10-09 03:55] LABS: PLATELET COUNT 223 10x3/uL (130-400)
[2019-10-09 04:01] LABS: CALC OSMOLALITY 270 mosm/kg (275-300); CALCIUM 8.6 mg/dL (8.5-10.1); CARBON DIOXIDE 22.8 mmol/L (21.0-32.0); CHLORIDE - SERUM 103 mmol/L (98-107); CREATININE - SERUM 0.7 mg/dL (0.6-1.3); GLUCOSE 97 mg/dL (74-106); POTASSIUM - SERUM 3.9 mmol/L (3.5-5.1); SODIUM 136 mmol/L (136-145); UREA NITROGEN 9 mg/dL (7-18); eGFR NON AFRICAN AMERICAN > 90 mL/min (90-120)
[2019-10-09 04:16] LABS: ALBUMIN 3.2 g/dL (3.4-5.0); ALKALINE PHOSPHATASE 71 U/L (30-120); ALT (SGPT) 20 U/L (10-68); CKMB 0.4 U/L (0.0-3.6); MAGNESIUM - SERUM 1.5 mg/dL (1.8-2.4); PROTEIN - SERUM 7.6 g/dL (6.4-8.2); THYROID STIMULATING HORMONE 2.84 uIU/mL (0.36-3.74)
[2019-10-09 06:25] LABS: HCG URINE POSITIVE (NEGATIVE)
[2019-10-09 06:26] LABS: BILIRUBIN NEGATIVE (NEGATIVE); GLUCOSE NEGATIVE (NEGATIVE); KETONE NEGATIVE (NEGATIVE); NITRITE NEGATIVE (NEGATIVE); UDS - AMPHET NEGATIVE QUAL (NEGATIVE); UDS - BARB NEGATIVE QUAL (NEGATIVE); UDS - BENZO NEGATIVE QUAL (NEGATIVE); UDS - COCAINE NEGATIVE QUAL (NEGATIVE); UDS - OPIATE NEGATIVE QUAL (NEGATIVE); UDS - PCP NEGATIVE QUAL (NEGATIVE); UDS - THC NEGATIVE QUAL (NEGATIVE); UROBILINOGEN NORMAL (NORMAL)
[2019-10-09 06:27] LABS: EPITHELIAL CELLS 25-50 /hpf (0-5); RED CELLS - URINE 0-5 /hpf (0-5)
[2019-10-09 06:28] LABS: BACTERIA MANY /hpf (NEGATIVE); CALCIUM OXALATE CRYSTALS OCC /hpf (NONE SEEN)
== END 2019-10-09 05:52 | disposition home or self-care (01) ==
LOC: D.ER 03:24
PROVIDERS: Emergency Medicine
DX: O26.91 Pregnancy related conditions, unspecified, first trimester (principal); Z3A.14 14 weeks gestation of pregnancy; G43.109 Migraine with aura, not intractable, without status migrainosus; O16.1 Unspecified maternal hypertension, first trimester

== ENCOUNTER 2019-12-08 10:58 | Outpatient (CLI) | payer SELFPAY ==
[2019-10-09 03:25] VITALS: BMI 39.9
[~2019-12-08 10:58] MED LIST changes: +PRENATAL VITAMIN
[2019-12-08 12:29] LABS: BILIRUBIN NEGATIVE (NEGATIVE); KETONE LARGE mg/dL (NEGATIVE); NITRITE NEGATIVE (NEGATIVE); UROBILINOGEN 8 mg/dL (< 2)
[2019-12-08 12:31] LABS: BACTERIA MODERATE HPF (NONE SEEN)
== END 2019-12-08 12:45 | disposition home or self-care (01) ==
LOC: D.LDO 10:58
PROVIDERS: ATTEND Obstetrics & Gynecology
DX: O26.853 Spotting complicating pregnancy, third trimester (principal)

== ENCOUNTER 2020-05-07 07:40 | Emergency (ER) | payer MEDICAID ==
[~2020-05-07] VITALS: Ht 167.6 cm; Wt 105.0 kg
[~2020-05-07 07:40] MED LIST changes: +HYDROCODON-ACE1 EA10 PO
[2020-05-07 07:47] VITALS: Ht 167.6 cm; Wt 105.0 kg
[2020-05-07 08:19] LABS: HEMATOCRIT 31.3 % (36.0-48.0); HEMOGLOBIN 9.9 g/dL (12-16); RBC 4.15 10x6/uL (4.00-5.40); WBC 8.1 10x3/uL (4.8-10.8)
[2020-05-07 08:20] LABS: BASOPHILS 0.1 % (0-2); EOSINOPHILS 2.3 % (0-7); IMMATURE GRANULOCYTES 0.2 % (0-5); LYMPHOCYTE ABS# 2.68 10x3/uL (1.18-3.74); MCH 23.9 pg (26.0-34.0); MCHC 31.6 g/dL (31.0-37.0); MCV 75.4 fL (80.0-100.0); MEAN PLATELET VOLUME 8.7 fL (7.4-10.4); NEUTROPHIL ABS# 4.65 10x3/uL (1.56-6.13); NEUTROPHILS 57.4 % (40-80); RDW 15.1 % (11.5-14.5)
[2020-05-07 08:29] LABS: CALC OSMOLALITY 274 mosm/kg (275-300); CALCIUM 8.3 mg/dL (8.5-10.1); CARBON DIOXIDE 23.8 mmol/L (21.0-32.0); CHLORIDE - SERUM 106 mmol/L (98-107); CREATININE - SERUM 0.7 mg/dL (0.6-1.3); GLUCOSE 94 mg/dL (74-106); POTASSIUM - SERUM 3.6 mmol/L (3.5-5.1); SODIUM 138 mmol/L (136-145); UREA NITROGEN 10 mg/dL (7-18); eGFR NON AFRICAN AMERICAN > 90 mL/min (90-120)
[2020-05-07 08:31] LABS: PLATELET COUNT 239 10x3/uL (130-400)
[2020-05-07 08:36] LABS: ALBUMIN 3.4 g/dL (3.4-5.0); ALKALINE PHOSPHATASE 106 U/L (30-120); ALT (SGPT) 21 U/L (10-68); BILIRUBIN - TOTAL 0.18 mg/dL (0.2-1.3)
[2020-05-07 08:38] LABS: HCG SERUM NEGATIVE (NEGATIVE)
[2020-05-07] MEDS ORDERED: NORVASC5 MG PO (09:45)
[2020-05-07 10:13] LABS: BILIRUBIN NEGATIVE (NEGATIVE); KETONE NEGATIVE (NEGATIVE); NITRITE NEGATIVE (NEGATIVE); SQUAMOUS EPITHELIAL 0-5 HPF (0-4); UROBILINOGEN NORMAL mg/dL (< 2); WHITE CELLS - URINE 0-5 HPF (0-4)
[2020-05-07 10:14] LABS: BACTERIA MANY HPF (NONE SEEN)
[2020-05-07 10:34] VITALS: BP 149/91
== END 2020-05-07 10:40 | disposition home or self-care (01) ==
LOC: D.ER 07:40
PROVIDERS: Emergency Medicine
DX: I10 Essential (primary) hypertension (principal); R42 Dizziness and giddiness; F41.9 Anxiety disorder, unspecified; R53.1 Weakness